=== PATIENT | female | born 1985 | race Caucasian/White ===

== ENCOUNTER 2018-07-18 19:54 | Emergency (ER) | payer OTHER ==
[~2018-07-18] VITALS: Ht 162.6 cm; Wt 108.9 kg
[2018-07-18 20:27] LABS: Urine Bacteria NONE SEEN /hpf (None Seen); Urine Blood Negative /uL (Negative); Urine Budding Yeast MODERATE /hpf (None Seen); Urine Specific Gravity 1.042 (1.001-1.035); Urine WBC 10 /hpf (0 - 5)
[2018-07-18 23:07] LABS: Basophils # (auto) 0.1 uL; Basophils % (auto) 0.8 % (0.0-2.0); Eosinophils # (auto) 0.1 uL; Hematocrit 42.8 % (36.0-46.0); Hemoglobin 14.7 g/dL (12.2-16.2); Lymphocytes # (auto) 4.1 uL; Lymphocytes % (auto) 35.6 % (10.0-50.0); Mean Corpuscular Hemoglobin 29.7 pg (28.0-32.0); Mean Corpuscular Hgb Conc. 34.3 g/dL (32.0-36.0); Mean Corpuscular Volume 86.4 fL (80.0-100.0); Monocytes # (auto) 0.6 uL; Monocytes % (auto) 5.1 % (0.0-12.0); Neutrophils # (auto) 6.6 uL; Neutrophils % (auto) 57.5 % (37.0-80.0); Nucleated Red Blood Cells % 0.1 %; Platelet Count (auto) 232 10^3/uL (140-450); Red Blood Cells 4.95 10^6/uL (4.0-5.20); Red Cell Distribution Width 13.1 % (11.8-14.3); White Blood Cell 11.5 10^3/uL (4.4-10.8)
[2018-07-18 23:25] LABS: Alanine Aminotransferase 21 U/L (13-56); Albumin 3.6 g/dL (3.4-5.0); Anion Gap 11 (5-15); Aspartate Aminotransferase 8 U/L (15-37); BUN/Creatinine Ratio 16.3; Blood Urea Nitrogen 13 mg/dL (7-18); Carbon Dioxide 25 mmol/L (21-32); Chloride 98 mmol/L (98-107); GFR African American 108 mL/min; GFR Non-African American 89 mL/min; Glucose 280 mg/dL (74-106); Magnesium 2.2 mg/dL (1.6-2.6); Potassium 3.5 mmol/L (3.5-5.1); Sodium 134 mmol/L (136-145)
[2018-07-18 23:30] LABS: Alkaline Phosphatase 78 U/L (45-117); Bilirubin, Total 0.2 mg/dL (0.2-1.0); Total Protein 7.4 g/dL (6.4-8.2)
[2018-07-19 06:24] VITALS: BP 126/76
== END 2018-07-19 06:25 | disposition home or self-care (01) ==
LOC: ER 19:56
DX: J20.9 Acute bronchitis, unspecified (principal); J32.0 Chronic maxillary sinusitis; N39.0 Urinary tract infection, site not specified; I11.0 Hypertensive heart disease with heart failure; I50.9 Heart failure, unspecified; E11.9 Type 2 diabetes mellitus without complications; J45.909 Unspecified asthma, uncomplicated; Z88.8 Allergy status to other drugs, medicaments and biological substances; Z90.89 Acquired absence of other organs
CPT/HCPCS: 36415; 71046; 80053; 81001; 81025; 83735; 84484; 85025; 87804; 93005

== ENCOUNTER 2020-09-04 22:24 | Inpatient (IN) | payer OTHER ==
[~2020-09-04] VITALS: Ht 162.6 cm; Wt 130.8 kg
[2020-09-04 23:11] LABS: Basophils # (auto) 0.1 10 ^3/uL (0-0.2); Basophils % (auto) 0.7 % (0.0-2.0); Eosinophils # (auto) 0.1 10 ^3/uL (0-0.8); Eosinophils % (auto) 0.9 % (0.0-7.0); Hematocrit 35.7 % (36.0-46.0); Hemoglobin 12.4 g/dL (12.2-16.2); Lymphocytes # (auto) 1.8 10 ^3/uL (0.4-5.4); Lymphocytes % (auto) 20.4 % (10.0-50.0); Mean Corpuscular Hgb Conc. 34.8 g/dL (32.0-36.0); Mean Corpuscular Volume 86.1 fL (80.0-100.0); Monocytes # (auto) 0.7 10 ^3/uL (0-1.3); Monocytes % (auto) 7.6 % (0.0-12.0); Neutrophils # (auto) 6.1 10 ^3/uL (1.6-8.6); Neutrophils % (auto) 70.4 % (37.0-80.0); Nucleated Red Blood Cells % 0.1 %; Platelet Count (auto) 210 10^3/uL (140-450); Red Blood Cells 4.15 10^6/uL (4.0-5.20); Red Cell Distribution Width 13.7 % (11.8-14.3); White Blood Cell 8.7 10^3/uL (4.4-10.8)
[2020-09-04 23:31] LABS: Albumin 2.7 g/dL (3.4-5.0); BUN/Creatinine Ratio 16.9; Calcium 8.4 mg/dL (8.5-10.1); Potassium 4.4 mmol/L (3.5-5.1)
[2020-09-04 23:34] LABS: Bilirubin, Total 0.3 mg/dL (0.2-1.0); Total Protein 7.3 g/dL (6.4-8.2)
[2020-09-05 02:56] LABS: Urine Bacteria FEW /hpf (None Seen); Urine Blood Negative /uL (Negative); Urine Budding Yeast MANY /hpf (None Seen); Urine WBC 4 /hpf (0 - 5)
[2020-09-05] MEDS ORDERED: VANCOMYCIN 1GM/250ML 250 ML IV ONE (04:15)
[2020-09-05] MEDS ORDERED: CEFEPIME 2 GM in SODIUM CHL 0.9% 50 ML IV ONE (04:15)
[2020-09-05] MEDS ORDERED: VANCOMYCIN PER PHARMACY 0 MG IV SCH (05:30)
[2020-09-05] MEDS ORDERED: ONDANSETRON HCL 4 MG/2 ML VIAL IV PRN (07:00)
[2020-09-05] MEDS ORDERED: NITROGLYCERIN 0.4 MG SL TAB SL PRN (07:00)
[2020-09-05] MEDS ORDERED: DEXTROSE (50%) 50ML SYRG IV PRN (07:00)
[2020-09-05] MEDS ORDERED: MORPHINE SULF INJ 2 MG/ML SYRINGE 1ML IV PRN (07:00)
[2020-09-05] MEDS ORDERED: DOCUSATE SOD 100 MG CAP PO PRN (07:00)
[2020-09-05] MEDS ORDERED: TEMAZEPAM 15 MG CAP PO PRN (07:00)
[2020-09-05] MEDS ORDERED: ACETAMINOPHEN 325 MG TAB PO PRN (07:00)
[2020-09-05 07:12] LABS: Basophils # (auto) 0 10 ^3/uL (0-0.2); Basophils % (auto) 0.5 % (0.0-2.0); Eosinophils # (auto) 0.1 10 ^3/uL (0-0.8); Eosinophils % (auto) 1.1 % (0.0-7.0); Hematocrit 34.5 % (36.0-46.0); Hemoglobin 12.2 g/dL (12.2-16.2); Lymphocytes % (auto) 24.5 % (10.0-50.0); Mean Corpuscular Hemoglobin 30.1 pg (28.0-32.0); Mean Corpuscular Hgb Conc. 35.4 g/dL (32.0-36.0); Mean Corpuscular Volume 85.1 fL (80.0-100.0); Monocytes # (auto) 0.8 10 ^3/uL (0-1.3); Monocytes % (auto) 9.6 % (0.0-12.0); Neutrophils # (auto) 5.3 10 ^3/uL (1.6-8.6); Neutrophils % (auto) 64.3 % (37.0-80.0); Platelet Count (auto) 195 10^3/uL (140-450); Potassium 3.8 mmol/L (3.5-5.1); Red Blood Cells 4.05 10^6/uL (4.0-5.20); Red Cell Distribution Width 13.6 % (11.8-14.3); White Blood Cell 8.2 10^3/uL (4.4-10.8)
[2020-09-05] MEDS ORDERED: SACU1TAB PO (07:27)
[2020-09-05] MEDS ORDERED: LOSA-69 PO (07:27)
[2020-09-05] MEDS ORDERED: MONT10TA42 PO (07:27)
[2020-09-05] MEDS ORDERED: HYDR-4072 PO (07:27)
[2020-09-05] MEDS ORDERED: GABA-339 PO (07:27)
[2020-09-05] MEDS ORDERED: INSUINJ37 SC (07:27)
[2020-09-05] MEDS ORDERED: METO1TAB9 PO (07:27)
[2020-09-05] MEDS ORDERED: IBUP800T26 PO (07:27)
[2020-09-05] MEDS ORDERED: PANT40T PO (07:27)
[2020-09-05] MEDS ORDERED: LEV25T PO (07:27)
[2020-09-05 07:28] LABS: Albumin 2.8 g/dL (3.4-5.0); BUN/Creatinine Ratio 17.9; Bilirubin, Total 0.3 mg/dL (0.2-1.0); Calcium 8.3 mg/dL (8.5-10.1); Total Protein 7.2 g/dL (6.4-8.2)
[2020-09-05] MEDS: HYDROcodone-ACET 5/325MG TAB PO PRN (09:15)
[2020-09-05] MEDS: ENOXAPARIN SOD 80 MG/0.8ML SYRINGE SC SCH (10:00)
[2020-09-05] MEDS ORDERED: ENOXAPARIN SOD 80 MG/0.8ML SYRINGE SC ONE (10:00)
[2020-09-05] MEDS: FAMOTIDINE 20 MG TAB PO SCH ×2 (10:00→21:53)
[2020-09-05] MEDS: ZINC SULFATE 220mg CAP or TAB PO SCH (11:34)
[2020-09-05] MEDS: MULTIPLE VITAMIN TAB PO SCH (11:34)
[2020-09-05] MEDS: ASCORBIC ACID 500 MG TAB PO SCH ×2 (11:35→21:54)
[2020-09-05] MEDS: ACCU-CHEK COMFORT CURVE STRIP VI SCH ×3 (11:35→23:46)
[2020-09-05] MEDS: INSULIN LANTUS (GLARGINE) 1 /0.01ml (100units/ml) SC SCH ×2 (11:38→21:56)
[2020-09-05] MEDS: InsuLIN REG 1unit/0.01ml Soln (100units/ml) SC SCH ×3 (12:02→23:47)
[2020-09-05 13:00] VITALS: BP 117/71
[2020-09-05] MEDS: CEFEPIME 1 GM in SODIUM CHL 0.9% 50 ML IV SCH ×2 (15:33→21:54)
[2020-09-05] MEDS: SODIUM CHLOR 0.9% PF (SALINE LOCK) 10ML VIAL/SYR IV SCH ×2 (15:35→21:54)
[2020-09-05] MEDS: MORPHINE SULF INJ 2 MG/ML SYRINGE 1ML IV PRN ×2 (15:43→20:28)
[2020-09-05 17:45] VITALS: BP 144/90
[2020-09-05] MEDS: VANCOMYCIN 1GM/250ML 250 ML IV SCH (18:27)
[2020-09-05 22:17] VITALS: BP 120/78
[2020-09-05] MEDS ORDERED: LORA0.5T20 PO (23:19)
[2020-09-06] MEDS: MORPHINE SULF INJ 2 MG/ML SYRINGE 1ML IV PRN ×5 (00:19→22:21)
[2020-09-06] MEDS ORDERED: GABA-339 PO (01:58)
[2020-09-06] MEDS ORDERED: CHOL20009 PO (02:04)
[2020-09-06] MEDS ORDERED: ROSU40TA PO (02:07)
[2020-09-06] MEDS: VANCOMYCIN 1GM/250ML 250 ML IV SCH (02:23)
[2020-09-06] MEDS: CEFEPIME 1 GM in SODIUM CHL 0.9% 50 ML IV SCH ×3 (05:06→22:24)
[2020-09-06] MEDS: SODIUM CHLOR 0.9% PF (SALINE LOCK) 10ML VIAL/SYR IV SCH ×3 (05:07→22:19)
[2020-09-06 05:10] VITALS: BP 104/82
[2020-09-06] MEDS: ACCU-CHEK COMFORT CURVE STRIP VI SCH ×4 (06:06→23:49)
[2020-09-06] MEDS: InsuLIN REG 1unit/0.01ml Soln (100units/ml) SC SCH ×4 (06:11→23:29)
[2020-09-06] MEDS: INSULIN LANTUS (GLARGINE) 1 /0.01ml (100units/ml) SC SCH ×2 (06:12→22:24)
[2020-09-06 09:00] VITALS: BP 121/78
[2020-09-06 10:15] LABS: Potassium 4.2 mmol/L (3.5-5.1)
[2020-09-06] MEDS: ASCORBIC ACID 500 MG TAB PO SCH ×2 (10:19→22:19)
[2020-09-06] MEDS: MULTIPLE VITAMIN TAB PO SCH (10:19)
[2020-09-06] MEDS: FAMOTIDINE 20 MG TAB PO SCH ×2 (10:19→22:19)
[2020-09-06] MEDS: ZINC SULFATE 220mg CAP or TAB PO SCH (10:20)
[2020-09-06] MEDS: ENOXAPARIN SOD 80 MG/0.8ML SYRINGE SC SCH (10:20)
[2020-09-06 10:23] LABS: BUN/Creatinine Ratio 14.8; Calcium 8.7 mg/dL (8.5-10.1); Magnesium 2.2 mg/dL (1.6-2.6)
[2020-09-06] MEDS ORDERED: OPTISON 3ml Vial for INJ IV ONE (10:59)
[2020-09-06] MEDS: LORazepam 0.5 MG TAB PO PRN ×3 (11:00→23:56)
[2020-09-06 13:00] VITALS: BP 123/74
[2020-09-06 13:41] LABS: Basophils # (auto) 0.1 10 ^3/uL (0-0.2); Basophils % (auto) 0.9 % (0.0-2.0); Eosinophils # (auto) 0.1 10 ^3/uL (0-0.8); Eosinophils % (auto) 0.9 % (0.0-7.0); Hematocrit 36.8 % (36.0-46.0); Hemoglobin 12.8 g/dL (12.2-16.2); Lymphocytes # (auto) 1.6 10 ^3/uL (0.4-5.4); Mean Corpuscular Hemoglobin 29.7 pg (28.0-32.0); Mean Corpuscular Hgb Conc. 34.7 g/dL (32.0-36.0); Mean Corpuscular Volume 85.6 fL (80.0-100.0); Monocytes # (auto) 0.6 10 ^3/uL (0-1.3); Monocytes % (auto) 6.4 % (0.0-12.0); Neutrophils # (auto) 6.4 10 ^3/uL (1.6-8.6); Neutrophils % (auto) 73.8 % (37.0-80.0); Nucleated Red Blood Cells % 0.2 %; Platelet Count (auto) 242 10^3/uL (140-450); Red Blood Cells 4.31 10^6/uL (4.0-5.20); Red Cell Distribution Width 13.5 % (11.8-14.3); White Blood Cell 8.7 10^3/uL (4.4-10.8)
[2020-09-06 14:01] LABS: Albumin 2.5 g/dL (3.4-5.0); Calcium 9.2 mg/dL (8.5-10.1); Potassium 4.4 mmol/L (3.5-5.1)
[2020-09-06 14:03] LABS: BUN/Creatinine Ratio 14.3
[2020-09-06 14:06] LABS: Bilirubin, Total 0.2 mg/dL (0.2-1.0); Total Protein 7.6 g/dL (6.4-8.2)
[2020-09-06 17:00] VITALS: BP 110/48
[2020-09-06 22:25] VITALS: BP 134/78
[2020-09-07] MEDS: HYDROcodone-ACET 5/325MG TAB PO PRN ×3 (00:40→20:30)
[2020-09-07] MEDS: MORPHINE SULF INJ 2 MG/ML SYRINGE 1ML IV PRN ×2 (03:35→09:30)
[2020-09-07 05:16] VITALS: BP 106/67
[2020-09-07] MEDS: CEFEPIME 1 GM in SODIUM CHL 0.9% 50 ML IV SCH (06:27)
[2020-09-07] MEDS: SODIUM CHLOR 0.9% PF (SALINE LOCK) 10ML VIAL/SYR IV SCH ×3 (06:27→21:39)
[2020-09-07] MEDS: ACCU-CHEK COMFORT CURVE STRIP VI SCH ×4 (06:27→21:40)
[2020-09-07] MEDS: InsuLIN REG 1unit/0.01ml Soln (100units/ml) SC SCH ×4 (06:31→21:41)
[2020-09-07] MEDS: LEVOTHYROXINE SODIUM 50 MCG TAB PO SCH (06:31)
[2020-09-07] MEDS: INSULIN LANTUS (GLARGINE) 1 /0.01ml (100units/ml) SC SCH ×2 (06:31→21:40)
[2020-09-07 09:00] VITALS: BP 131/78
[2020-09-07] MEDS: MULTIPLE VITAMIN TAB PO SCH (09:30)
[2020-09-07] MEDS: ASCORBIC ACID 500 MG TAB PO SCH ×2 (09:30→21:39)
[2020-09-07] MEDS: FAMOTIDINE 20 MG TAB PO SCH ×2 (09:30→21:39)
[2020-09-07] MEDS: ZINC SULFATE 220mg CAP or TAB PO SCH (09:30)
[2020-09-07] MEDS: LORazepam 0.5 MG TAB PO PRN (09:30)
[2020-09-07] MEDS: ENOXAPARIN SOD 80 MG/0.8ML SYRINGE SC SCH (09:30)
[2020-09-07] MEDS ORDERED: LINEZOLID 600MG/300ML 300 ML IV SCH (12:15)
[2020-09-07 12:30] VITALS: BP 116/69
[2020-09-07] MEDS: LINEZOLID 600MG/300ML 300 ML IV SCH ×2 (13:30→21:39)
[2020-09-07 16:30] VITALS: BP 129/78
[2020-09-07 22:25] VITALS: BP 103/64
[2020-09-08] MEDS: MORPHINE SULF INJ 2 MG/ML SYRINGE 1ML IV PRN ×4 (00:40→16:07)
[2020-09-08] MEDS: LEVOTHYROXINE SODIUM 50 MCG TAB PO SCH (04:55)
[2020-09-08 05:10] VITALS: BP 138/84
[2020-09-08] MEDS: SODIUM CHLOR 0.9% PF (SALINE LOCK) 10ML VIAL/SYR IV SCH ×2 (05:32→14:04)
[2020-09-08] MEDS: ACCU-CHEK COMFORT CURVE STRIP VI SCH ×3 (05:32→17:50)
[2020-09-08] MEDS: INSULIN LANTUS (GLARGINE) 1 /0.01ml (100units/ml) SC SCH (05:35)
[2020-09-08] MEDS: InsuLIN REG 1unit/0.01ml Soln (100units/ml) SC SCH ×3 (05:38→17:50)
[2020-09-08 06:40] LABS: INR 1.03 (0.9-1.15); Partial Thromboplastin Time 28.1 sec (23.0-31.2)
[2020-09-08] MEDS ORDERED: ROPIVACAINE 0.5% (5MG/ML) 20ML AMPULE IJ ONE ×2 (06:55→07:29)
[2020-09-08] MEDS ORDERED: NEOMYCIN-BACITRACIN-POLYM 15GM TOP OINT TOP ONE (06:55)
[2020-09-08] MEDS ORDERED: ceFAZolin 1GM VL ONE (06:55)
[2020-09-08] MEDS ORDERED: ceFAZolin 1GM/50ML 100 ML IV ONE (07:01)
[2020-09-08] MEDS ORDERED: fentaNYL CITRATE 100 MCG/2 ML VL ONE (07:26)
[2020-09-08] MEDS ORDERED: MEPERIDINE HCL (25 MG/ML) 1ML VIAL ONE (07:26)
[2020-09-08] MEDS ORDERED: MIDAZOLAM HCL 1MG/1ML-2 ML VIAL ONE (07:27)
[2020-09-08] MEDS ORDERED: PROPOFOL 10 MG/ML 20 ML IV ONE (07:43)
[2020-09-08] MEDS ORDERED: MORPHINE SULFATE 4 MG/ML SYR/VIAL IV PRN (08:30)
[2020-09-08] MEDS ORDERED: MIDAZOLAM HCL 1MG/1ML-2 ML VIAL IV PRN (08:30)
[2020-09-08] MEDS ORDERED: ONDANSETRON HCL 4 MG/2 ML VIAL IV PRN (08:30)
[2020-09-08] MEDS ORDERED: LABETALOL HCL 5 MG/ML 4ML SYRINGE IV PRN (08:30)
[2020-09-08] MEDS ORDERED: ePHEDrine SULFATE 50 MG/ML AMP IV PRN (08:30)
[2020-09-08] MEDS ORDERED: HYDROmorphone HCL 2 MG/ML VL IV PRN (08:30)
[2020-09-08] MEDS: MULTIPLE VITAMIN TAB PO SCH (09:26)
[2020-09-08] MEDS: ZINC SULFATE 220mg CAP or TAB PO SCH (09:26)
[2020-09-08] MEDS: LINEZOLID 600MG/300ML 300 ML IV SCH (09:26)
[2020-09-08] MEDS: ASCORBIC ACID 500 MG TAB PO SCH (09:27)
[2020-09-08] MEDS: ENOXAPARIN SOD 80 MG/0.8ML SYRINGE SC SCH (09:27)
[2020-09-08] MEDS: FAMOTIDINE 20 MG TAB PO SCH (09:27)
[2020-09-08 13:00] VITALS: BP 137/94
[2020-09-08] MEDS: HYDROcodone-ACET 5/325MG TAB PO PRN ×2 (13:15→20:25)
[2020-09-08 17:00] VITALS: BP 128/93
[2020-09-08 20:00] VITALS: BP 116/81
[2020-09-08 22:00] VITALS: BP 116/81
[2020-09-09] MEDS: SODIUM CHLOR 0.9% PF (SALINE LOCK) 10ML VIAL/SYR IV SCH ×3 (00:51→16:17)
[2020-09-09] MEDS: LINEZOLID 600MG/300ML 300 ML IV SCH ×2 (00:52→09:49)
[2020-09-09] MEDS: SACUBITRIL-VALSARTAN 24mg/26mg TAB PO SCH ×2 (00:52→09:49)
[2020-09-09] MEDS: METOPROLOL TARTRATE 25 MG TAB PO SCH ×2 (00:53→09:49)
[2020-09-09] MEDS: FAMOTIDINE 20 MG TAB PO SCH ×2 (00:54→09:50)
[2020-09-09] MEDS: ASCORBIC ACID 500 MG TAB PO SCH ×2 (00:55→09:50)
[2020-09-09] MEDS: INSULIN LANTUS (GLARGINE) 1 /0.01ml (100units/ml) SC SCH ×2 (00:56→06:43)
[2020-09-09] MEDS: ACCU-CHEK COMFORT CURVE STRIP VI SCH ×4 (00:57→18:13)
[2020-09-09] MEDS: InsuLIN REG 1unit/0.01ml Soln (100units/ml) SC SCH ×4 (00:57→18:14)
[2020-09-09 05:00] VITALS: BP 118/74
[2020-09-09 06:34] LABS: Basophils # (auto) 0 10 ^3/uL (0-0.2); Basophils % (auto) 0.6 % (0.0-2.0); Eosinophils # (auto) 0.2 10 ^3/uL (0-0.8); Hematocrit 40.2 % (36.0-46.0); Hemoglobin 13.8 g/dL (12.2-16.2); Lymphocytes # (auto) 2.3 10 ^3/uL (0.4-5.4); Lymphocytes % (auto) 28.5 % (10.0-50.0); Mean Corpuscular Hemoglobin 29.7 pg (28.0-32.0); Mean Corpuscular Hgb Conc. 34.4 g/dL (32.0-36.0); Mean Corpuscular Volume 86.2 fL (80.0-100.0); Monocytes # (auto) 0.6 10 ^3/uL (0-1.3); Monocytes % (auto) 7.4 % (0.0-12.0); Neutrophils % (auto) 61.5 % (37.0-80.0); Nucleated Red Blood Cells % 0.1 %; Platelet Count (auto) 272 10^3/uL (140-450); Red Blood Cells 4.67 10^6/uL (4.0-5.20); Red Cell Distribution Width 13.7 % (11.8-14.3); White Blood Cell 8.2 10^3/uL (4.4-10.8)
[2020-09-09] MEDS: LEVOTHYROXINE SODIUM 50 MCG TAB PO SCH (06:41)
[2020-09-09 06:44] LABS: Calcium 9.1 mg/dL (8.5-10.1); Magnesium 2.5 mg/dL (1.6-2.6)
[2020-09-09 06:47] LABS: BUN/Creatinine Ratio 13.8
[2020-09-09 09:00] VITALS: BP 104/81
[2020-09-09] MEDS: ZINC SULFATE 220mg CAP or TAB PO SCH (09:49)
[2020-09-09] MEDS: MULTIPLE VITAMIN TAB PO SCH (09:50)
[2020-09-09] MEDS: ENOXAPARIN SOD 80 MG/0.8ML SYRINGE SC SCH (09:50)
[2020-09-09] MEDS: MORPHINE SULF INJ 2 MG/ML SYRINGE 1ML IV PRN (09:51)
[2020-09-09 13:19] VITALS: BP 114/75
[2020-09-09] MEDS: HYDROcodone-ACET 5/325MG TAB PO PRN (16:17)
[2020-09-09 17:00] VITALS: BP 116/83
[2020-09-09 20:00] VITALS: BP_SYST 112; BP_SYST 115; BP_DIAS 70
== END 2020-09-09 20:20 | disposition home health service (06) | DRG 623 ==
LOC: ER 22:24 → OVERFLOW 09-05 06:49 → CENTRAL 09-05 08:20
PROVIDERS: ADMIT Nurse Practitioner Family; ATTEND Internal Medicine
PROC: 0JBQ0ZZ Excision of Right Foot Subcutaneous Tissue and Fascia, Open Approach (ICD-10-PCS; 2020-09-08)
PROC: 0H9NXZZ Drainage of Left Foot Skin, External Approach (ICD-10-PCS; 2020-09-08)
PROC: 0JBR0ZZ Excision of Left Foot Subcutaneous Tissue and Fascia, Open Approach (ICD-10-PCS; principal; 2020-09-08 07:32)
DX: E11.621 Type 2 diabetes mellitus with foot ulcer (principal); L03.116 Cellulitis of left lower limb; L02.612 Cutaneous abscess of left foot; I50.42 Chronic combined systolic (congestive) and diastolic (congestive) heart failure; E87.1 Hypo-osmolality and hyponatremia; Z68.41 Body mass index [BMI] 40.0-44.9, adult; E11.628 Type 2 diabetes mellitus with other skin complications; L97.529 Non-pressure chronic ulcer of other part of left foot with unspecified severity; L97.519 Non-pressure chronic ulcer of other part of right foot with unspecified severity; E88.09 Other disorders of plasma-protein metabolism, not elsewhere classified; E66.01 Morbid (severe) obesity due to excess calories; E11.65 Type 2 diabetes mellitus with hyperglycemia; J45.909 Unspecified asthma, uncomplicated; F41.9 Anxiety disorder, unspecified; F32.9 Major depressive disorder, single episode, unspecified; M79.7 Fibromyalgia; E03.9 Hypothyroidism, unspecified; I11.0 Hypertensive heart disease with heart failure; Z83.3 Family history of diabetes mellitus; B95.62 Methicillin resistant Staphylococcus aureus infection as the cause of diseases classified elsewhere; Z20.822 Contact with and (suspected) exposure to COVID-19
CPT/HCPCS: 36415; 73630; 73700; 73718; 80048; 80053; 80061; 81001; 82306; 82962; 83036; 83605; 83735; 83880; 84443; 84702; 85025; 85049; 85610; 85652; 85730; 86850; 86900; 86901; 87070; 87075; 87077; 87186; 87205; 87426; 93306; 93925; 96365; G0378; J0690; J1815; J2250; J2405; J2704; Q9956

== ENCOUNTER 2020-09-15 22:48 | Inpatient (IN) | payer OTHER ==
[~2020-09-15] VITALS: Ht 162.6 cm; Wt 113.0 kg
[~2020-09-15 22:48] MED LIST: CHOL20009 PO; GABA-339 PO; HYDR-4072 PO; IBUP800T26 PO; INSUINJ37 SC; LEV25T PO; LORA0.5T20 PO; METO1TAB9 PO; MONT10TA42 PO; PANT40T PO; ROSU40TA PO; SACU1TAB PO
[2020-09-16 01:47] LABS: Basophils # (auto) 0.1 10 ^3/uL (0-0.2); Eosinophils # (auto) 0.2 10 ^3/uL (0-0.8); Eosinophils % (auto) 1.7 % (0.0-7.0); Hematocrit 42.9 % (36.0-46.0); Hemoglobin 14.6 g/dL (12.2-16.2); Lymphocytes # (auto) 4.7 10 ^3/uL (0.4-5.4); Lymphocytes % (auto) 44.1 % (10.0-50.0); Mean Corpuscular Hemoglobin 28.8 pg (28.0-32.0); Mean Corpuscular Volume 84.6 fL (80.0-100.0); Monocytes # (auto) 0.6 10 ^3/uL (0-1.3); Monocytes % (auto) 5.3 % (0.0-12.0); Neutrophils # (auto) 5.1 10 ^3/uL (1.6-8.6); Neutrophils % (auto) 47.9 % (37.0-80.0); Nucleated Red Blood Cells % 0.1 %; Red Blood Cells 5.06 10^6/uL (4.0-5.20); Red Cell Distribution Width 13.4 % (11.8-14.3); White Blood Cell 10.5 10^3/uL (4.4-10.8)
[2020-09-16 02:12] LABS: Albumin 3.3 g/dL (3.4-5.0); BUN/Creatinine Ratio 26.4; Calcium 8.8 mg/dL (8.5-10.1); Potassium 3.9 mmol/L (3.5-5.1)
[2020-09-16 02:14] LABS: Bilirubin, Total 0.2 mg/dL (0.2-1.0); Total Protein 7.8 g/dL (6.4-8.2)
[2020-09-16 02:19] LABS: Urine Bacteria FEW /hpf (None Seen); Urine Blood Negative /uL (Negative); Urine Budding Yeast MANY /hpf (None Seen); Urine Specific Gravity 1.043 (1.001-1.035); Urine WBC 4 /hpf (0 - 5)
[2020-09-16 02:20] LABS: INR 1.03 (0.9-1.15); Partial Thromboplastin Time 25.2 sec (23.0-31.2)
[2020-09-16] MEDS ORDERED: LINEZOLID 600MG/300ML 300 ML IV ONE (03:45)
[2020-09-16] MEDS ORDERED: ACETAMINOPHEN 325 MG TAB PO PRN (05:45)
[2020-09-16] MEDS ORDERED: DEXTROSE (50%) 50ML SYRG IV PRN ×2 (05:45→12:15)
[2020-09-16] MEDS: MORPHINE SULFATE 4 MG/ML SYR/VIAL IV PRN ×3 (07:04→22:35)
[2020-09-16] MEDS: ONDANSETRON HCL 4 MG/2 ML VIAL IV PRN ×2 (07:05→22:35)
[2020-09-16] MEDS: ACCU-CHEK COMFORT CURVE STRIP VI SCH ×4 (07:33→22:27)
[2020-09-16] MEDS: InsuLIN REG 1unit/0.01ml Soln (100units/ml) SC SCH ×4 (07:34→22:30)
[2020-09-16] MEDS: CLINDAMYCIN 600MG IV 50 ML IV SCH ×3 (07:59→22:26)
[2020-09-16] MEDS: LEVOTHYROXINE SODIUM 25 MCG TAB PO SCH (07:59)
[2020-09-16 09:00] VITALS: BP 121/89
[2020-09-16] MEDS: cefTRIAXone 1GM/50ML D5W 50 ML IV SCH (09:14)
[2020-09-16] MEDS: SACUBITRIL-VALSARTAN 24mg/26mg TAB PO SCH ×2 (09:15→22:26)
[2020-09-16] MEDS: METOPROLOL TARTRATE 50 MG TAB PO SCH ×2 (09:16→22:34)
[2020-09-16] MEDS: FAMOTIDINE 20 MG TAB PO SCH ×2 (09:16→22:26)
[2020-09-16] MEDS ORDERED: ASPITAB34 PO (11:03)
[2020-09-16] MEDS ORDERED: MULT-1018 PO (11:03)
[2020-09-16 13:00] VITALS: BP 115/60
[2020-09-16] MEDS: HYDROcodone-ACET 5/325MG TAB PO PRN (16:58)
[2020-09-16 17:00] VITALS: BP 133/92
[2020-09-16 22:00] VITALS: BP 134/78
[2020-09-16] MEDS: ATORVASTATIN 20 MG TAB PO SCH (22:26)
[2020-09-17 05:00] VITALS: BP 153/76
[2020-09-17 05:55] LABS: Basophils # (auto) 0.1 10 ^3/uL (0-0.2); Basophils % (auto) 0.7 % (0.0-2.0); Eosinophils # (auto) 0.1 10 ^3/uL (0-0.8); Eosinophils % (auto) 1.5 % (0.0-7.0); Hematocrit 40.6 % (36.0-46.0); Hemoglobin 14.2 g/dL (12.2-16.2); Lymphocytes # (auto) 3.1 10 ^3/uL (0.4-5.4); Lymphocytes % (auto) 40.7 % (10.0-50.0); Mean Corpuscular Hemoglobin 29.7 pg (28.0-32.0); Mean Corpuscular Hgb Conc. 34.9 g/dL (32.0-36.0); Monocytes # (auto) 0.5 10 ^3/uL (0-1.3); Monocytes % (auto) 6.7 % (0.0-12.0); Neutrophils # (auto) 3.8 10 ^3/uL (1.6-8.6); Neutrophils % (auto) 50.4 % (37.0-80.0); Nucleated Red Blood Cells % 0.1 %; Red Blood Cells 4.78 10^6/uL (4.0-5.20); Red Cell Distribution Width 13.6 % (11.8-14.3); White Blood Cell 7.5 10^3/uL (4.4-10.8)
[2020-09-17] MEDS: CLINDAMYCIN 600MG IV 50 ML IV SCH ×3 (06:05→21:27)
[2020-09-17] MEDS: LEVOTHYROXINE SODIUM 25 MCG TAB PO SCH ×2 (06:06→06:14)
[2020-09-17] MEDS: ONDANSETRON HCL 4 MG/2 ML VIAL IV PRN ×2 (06:07→22:45)
[2020-09-17] MEDS: MORPHINE SULFATE 4 MG/ML SYR/VIAL IV PRN ×2 (06:07→21:31)
[2020-09-17] MEDS: ACCU-CHEK COMFORT CURVE STRIP VI SCH ×4 (06:07→21:29)
[2020-09-17] MEDS: InsuLIN REG 1unit/0.01ml Soln (100units/ml) SC SCH ×6 (06:08→21:30)
[2020-09-17 06:36] LABS: Calcium 8.6 mg/dL (8.5-10.1); Potassium 3.9 mmol/L (3.5-5.1)
[2020-09-17] MEDS ORDERED: LIDOCAINE 1% HCL (LOCAL ANESTH.) INJ 20ML MDV ONE (07:02)
[2020-09-17] MEDS ORDERED: DOXAPRAM HCL 20 MG/ML 20ML VIAL INJ IV ONE (07:02)
[2020-09-17] MEDS ORDERED: fentaNYL CITRATE 100 MCG/2 ML VL ONE (07:06)
[2020-09-17] MEDS ORDERED: MIDAZOLAM HCL 1MG/1ML-2 ML VIAL ONE (07:07)
[2020-09-17] MEDS ORDERED: KETAMINE HCL 10 ML ONE (07:07)
[2020-09-17] MEDS ORDERED: PROPOFOL 10 MG/ML 20 ML IV ONE (07:08)
[2020-09-17] MEDS ORDERED: ONDANSETRON HCL 4 MG/2 ML VIAL ONE (07:08)
[2020-09-17] MEDS ORDERED: SODIUM CHLORIDE LOCK 10 ML ONE (07:08)
[2020-09-17] MEDS ORDERED: ceFAZolin 1GM VL ONE (07:13)
[2020-09-17] MEDS ORDERED: NEOMYCIN-BACITRACIN-POLYM 15GM TOP OINT TOP ONE (07:13)
[2020-09-17] MEDS ORDERED: ROPIVACAINE 0.5% (5MG/ML) 20ML AMPULE IJ ONE (07:13)
[2020-09-17] MEDS ORDERED: ACCU-CHEK COMFORT CURVE STRIP VI ONE (07:30)
[2020-09-17] MEDS ORDERED: MORPHINE SULFATE 4 MG/ML SYR/VIAL IV PRN (07:30)
[2020-09-17] MEDS ORDERED: METOCLOPRAMIDE HCL 5MG/ml INJ 2ml VIAL IV PRN (07:30)
[2020-09-17] MEDS ORDERED: HYDROmorphone HCL 2 MG/ML VL IV PRN (07:30)
[2020-09-17] MEDS ORDERED: METOCLOPRAMIDE HCL 5MG/ml INJ 2ml VIAL IV ONE (07:45)
[2020-09-17 09:00] VITALS: BP 127/50
[2020-09-17] MEDS: cefTRIAXone 1GM/50ML D5W 50 ML IV SCH (09:00)
[2020-09-17] MEDS: SACUBITRIL-VALSARTAN 24mg/26mg TAB PO SCH ×2 (10:32→21:28)
[2020-09-17] MEDS: FAMOTIDINE 20 MG TAB PO SCH (10:33)
[2020-09-17] MEDS: METOPROLOL TARTRATE 50 MG TAB PO SCH ×2 (10:33→21:28)
[2020-09-17] MEDS: HYDROcodone-ACET 5/325MG TAB PO PRN (11:40)
[2020-09-17 13:00] VITALS: BP 105/69
[2020-09-17] MEDS ORDERED: LIDOCAINE 1% (LOCAL ANESTH.) PF 5ml SDV ID ONE (14:15)
[2020-09-17 17:00] VITALS: BP 97/62
[2020-09-17] MEDS: SODIUM CHLOR 0.9% PF (SALINE LOCK) 10ML VIAL/SYR IV SCH (21:28)
[2020-09-17] MEDS: ATORVASTATIN 20 MG TAB PO SCH (21:28)
[2020-09-17 22:00] VITALS: BP 133/81
[2020-09-17] MEDS ORDERED: TEMAZEPAM 15 MG CAP PO PRN (23:00)
[2020-09-18] MEDS: ONDANSETRON HCL 4 MG/2 ML VIAL IV PRN ×4 (04:43→20:19)
[2020-09-18] MEDS: MORPHINE SULFATE 4 MG/ML SYR/VIAL IV PRN ×4 (04:43→20:20)
[2020-09-18 05:00] VITALS: BP 114/66
[2020-09-18] MEDS: CLINDAMYCIN 600MG IV 50 ML IV SCH (06:06)
[2020-09-18] MEDS: ACCU-CHEK COMFORT CURVE STRIP VI SCH ×4 (06:07→22:08)
[2020-09-18] MEDS: InsuLIN REG 1unit/0.01ml Soln (100units/ml) SC SCH ×4 (06:07→22:09)
[2020-09-18] MEDS: LEVOTHYROXINE SODIUM 25 MCG TAB PO SCH (06:48)
[2020-09-18 09:00] VITALS: BP 137/86
[2020-09-18] MEDS: cefTRIAXone 1GM/50ML D5W 50 ML IV SCH (09:14)
[2020-09-18] MEDS: SODIUM CHLOR 0.9% PF (SALINE LOCK) 10ML VIAL/SYR IV SCH ×2 (09:14→22:06)
[2020-09-18] MEDS: SACUBITRIL-VALSARTAN 24mg/26mg TAB PO SCH ×2 (09:15→22:06)
[2020-09-18] MEDS: METOPROLOL TARTRATE 50 MG TAB PO SCH ×2 (09:15→22:07)
[2020-09-18 13:00] VITALS: BP 134/77
[2020-09-18 17:00] VITALS: BP 115/76
[2020-09-18 22:00] VITALS: BP 116/77
[2020-09-18] MEDS ORDERED: LINEZOLID 600MG/300ML 300 ML IV SCH (22:00)
[2020-09-18] MEDS: ATORVASTATIN 20 MG TAB PO SCH (22:06)
[2020-09-18] MEDS: GABAPENTIN 300 MG CAP PO SCH (22:08)
[2020-09-18] MEDS: LINEZOLID 600MG TABLET PO SCH (22:08)
[2020-09-18] MEDS: INSULIN LANTUS (GLARGINE) 1 /0.01ml (100units/ml) SC SCH (22:10)
[2020-09-19] MEDS: LORazepam 0.5 MG TAB PO PRN ×2 (00:04→23:12)
[2020-09-19] MEDS: ONDANSETRON HCL 4 MG/2 ML VIAL IV PRN ×5 (00:10→22:44)
[2020-09-19] MEDS: MORPHINE SULFATE 4 MG/ML SYR/VIAL IV PRN ×5 (00:10→22:43)
[2020-09-19 05:25] VITALS: BP 102/59
[2020-09-19] MEDS: LEVOTHYROXINE SODIUM 25 MCG TAB PO SCH (06:26)
[2020-09-19] MEDS: ACCU-CHEK COMFORT CURVE STRIP VI SCH ×4 (06:27→21:37)
[2020-09-19] MEDS: InsuLIN REG 1unit/0.01ml Soln (100units/ml) SC SCH ×4 (06:27→22:42)
[2020-09-19 09:00] VITALS: BP 116/68
[2020-09-19] MEDS: GABAPENTIN 300 MG CAP PO SCH ×2 (09:24→21:36)
[2020-09-19] MEDS: SACUBITRIL-VALSARTAN 24mg/26mg TAB PO SCH ×2 (09:24→21:36)
[2020-09-19] MEDS: METOPROLOL TARTRATE 50 MG TAB PO SCH ×2 (09:24→21:36)
[2020-09-19] MEDS: LINEZOLID 600MG TABLET PO SCH (10:08)
[2020-09-19] MEDS: SODIUM CHLOR 0.9% PF (SALINE LOCK) 10ML VIAL/SYR IV SCH ×2 (10:08→21:35)
[2020-09-19 13:00] VITALS: BP 108/73
[2020-09-19 17:00] VITALS: BP 121/84
[2020-09-19] MEDS: LINEZOLID 600MG/300ML 300 ML IV SCH (21:35)
[2020-09-19] MEDS: ATORVASTATIN 20 MG TAB PO SCH (21:37)
[2020-09-19 22:15] VITALS: BP 129/80
[2020-09-19] MEDS: INSULIN LANTUS (GLARGINE) 1 /0.01ml (100units/ml) SC SCH (22:41)
[2020-09-20 05:00] VITALS: BP 108/62
[2020-09-20] MEDS: ACCU-CHEK COMFORT CURVE STRIP VI SCH ×4 (06:51→21:43)
[2020-09-20] MEDS: InsuLIN REG 1unit/0.01ml Soln (100units/ml) SC SCH ×4 (06:52→21:44)
[2020-09-20] MEDS: LEVOTHYROXINE SODIUM 25 MCG TAB PO SCH (06:54)
[2020-09-20] MEDS: MORPHINE SULFATE 4 MG/ML SYR/VIAL IV PRN ×3 (08:22→21:55)
[2020-09-20 09:00] VITALS: BP 99/57
[2020-09-20] MEDS: SODIUM CHLOR 0.9% PF (SALINE LOCK) 10ML VIAL/SYR IV SCH ×2 (09:47→21:42)
[2020-09-20] MEDS: GABAPENTIN 300 MG CAP PO SCH ×2 (09:48→21:43)
[2020-09-20] MEDS: LINEZOLID 600MG/300ML 300 ML IV SCH ×2 (09:48→21:42)
[2020-09-20] MEDS: SACUBITRIL-VALSARTAN 24mg/26mg TAB PO SCH ×2 (09:48→21:42)
[2020-09-20] MEDS: METOPROLOL TARTRATE 50 MG TAB PO SCH ×2 (09:49→21:43)
[2020-09-20] MEDS: ONDANSETRON HCL 4 MG/2 ML VIAL IV PRN ×2 (09:51→21:54)
[2020-09-20 13:00] VITALS: BP 114/75
[2020-09-20 17:14] VITALS: BP 101/49
[2020-09-20] MEDS: ATORVASTATIN 20 MG TAB PO SCH (21:42)
[2020-09-20] MEDS: INSULIN LANTUS (GLARGINE) 1 /0.01ml (100units/ml) SC SCH (21:44)
[2020-09-20 22:00] VITALS: BP 121/61
[2020-09-20] MEDS: LORazepam 0.5 MG TAB PO PRN (23:18)
[2020-09-21 05:14] VITALS: BP 101/53
[2020-09-21] MEDS: ACCU-CHEK COMFORT CURVE STRIP VI SCH ×4 (06:22→21:01)
[2020-09-21] MEDS: LEVOTHYROXINE SODIUM 25 MCG TAB PO SCH (06:22)
[2020-09-21] MEDS: InsuLIN REG 1unit/0.01ml Soln (100units/ml) SC SCH ×4 (06:22→21:09)
[2020-09-21] MEDS: MORPHINE SULFATE 4 MG/ML SYR/VIAL IV PRN ×3 (06:36→20:42)
[2020-09-21] MEDS: ONDANSETRON HCL 4 MG/2 ML VIAL IV PRN ×2 (06:36→21:19)
[2020-09-21] MEDS: SODIUM CHLOR 0.9% PF (SALINE LOCK) 10ML VIAL/SYR IV SCH ×2 (09:17→21:00)
[2020-09-21 09:38] VITALS: BP 106/63
[2020-09-21] MEDS: LINEZOLID 600MG/300ML 300 ML IV SCH ×2 (10:10→21:00)
[2020-09-21] MEDS: SACUBITRIL-VALSARTAN 24mg/26mg TAB PO SCH ×2 (10:10→21:00)
[2020-09-21] MEDS: METOPROLOL TARTRATE 50 MG TAB PO SCH ×2 (10:11→21:01)
[2020-09-21] MEDS: GABAPENTIN 300 MG CAP PO SCH ×2 (10:12→21:01)
[2020-09-21 13:00] VITALS: BP 128/90
[2020-09-21] MEDS: ATORVASTATIN 20 MG TAB PO SCH (21:00)
[2020-09-21] MEDS: INSULIN LANTUS (GLARGINE) 1 /0.01ml (100units/ml) SC SCH (21:10)
[2020-09-21 22:00] VITALS: BP 120/83
[2020-09-21] MEDS: LORazepam 0.5 MG TAB PO PRN (23:19)
[2020-09-22] MEDS: MORPHINE SULFATE 4 MG/ML SYR/VIAL IV PRN ×3 (00:41→09:48)
[2020-09-22 05:00] VITALS: BP 103/72
[2020-09-22] MEDS: ONDANSETRON HCL 4 MG/2 ML VIAL IV PRN ×2 (05:54→10:01)
[2020-09-22] MEDS: ACCU-CHEK COMFORT CURVE STRIP VI SCH ×2 (06:02→12:32)
[2020-09-22] MEDS: LEVOTHYROXINE SODIUM 25 MCG TAB PO SCH (06:02)
[2020-09-22] MEDS: InsuLIN REG 1unit/0.01ml Soln (100units/ml) SC SCH ×2 (06:03→11:30)
[2020-09-22 09:00] VITALS: BP 139/96
[2020-09-22] MEDS: SACUBITRIL-VALSARTAN 24mg/26mg TAB PO SCH (09:48)
[2020-09-22] MEDS: GABAPENTIN 300 MG CAP PO SCH (09:49)
[2020-09-22] MEDS: METOPROLOL TARTRATE 50 MG TAB PO SCH (09:49)
[2020-09-22] MEDS: LINEZOLID 600MG/300ML 300 ML IV SCH (09:49)
[2020-09-22] MEDS: SODIUM CHLOR 0.9% PF (SALINE LOCK) 10ML VIAL/SYR IV SCH (09:50)
[2020-09-22 12:05] VITALS: BP 91/63
== END 2020-09-22 12:50 | disposition home health service (06) | DRG 617 ==
LOC: ER 22:48 → OVERFLOW 09-16 05:35 → WEST WING 09-16 08:34
PROVIDERS: ADMIT Nurse Practitioner; ATTEND Family Medicine
PROC: 0QTP0ZZ Resection of Left Metatarsal, Open Approach (ICD-10-PCS; 2020-09-17)
PROC: 02HV33Z Insertion of Infusion Device into Superior Vena Cava, Percutaneous Approach (ICD-10-PCS; 2020-09-17)
PROC: B548ZZA Ultrasonography of Superior Vena Cava, Guidance (ICD-10-PCS; 2020-09-17)
PROC: 0Y6Q0Z0 Detachment at Left 1st Toe, Complete, Open Approach (ICD-10-PCS; principal; 2020-09-17 07:55)
DX: E11.69 Type 2 diabetes mellitus with other specified complication (principal); L03.116 Cellulitis of left lower limb; R78.81 Bacteremia; E44.0 Moderate protein-calorie malnutrition; M86.8X8 Other osteomyelitis, other site; Z68.41 Body mass index [BMI] 40.0-44.9, adult; I50.22 Chronic systolic (congestive) heart failure; E11.621 Type 2 diabetes mellitus with foot ulcer; E03.9 Hypothyroidism, unspecified; B95.62 Methicillin resistant Staphylococcus aureus infection as the cause of diseases classified elsewhere; E11.21 Type 2 diabetes mellitus with diabetic nephropathy; E11.40 Type 2 diabetes mellitus with diabetic neuropathy, unspecified; E66.01 Morbid (severe) obesity due to excess calories; F41.9 Anxiety disorder, unspecified; G47.30 Sleep apnea, unspecified; E78.00 Pure hypercholesterolemia, unspecified; F31.9 Bipolar disorder, unspecified; I11.0 Hypertensive heart disease with heart failure; J45.909 Unspecified asthma, uncomplicated; L97.519 Non-pressure chronic ulcer of other part of right foot with unspecified severity; L97.529 Non-pressure chronic ulcer of other part of left foot with unspecified severity; Z83.3 Family history of diabetes mellitus; Z88.1 Allergy status to other antibiotic agents; Z89.412 Acquired absence of left great toe; Z79.899 Other long term (current) drug therapy; Z90.49 Acquired absence of other specified parts of digestive tract; Z91.013 Allergy to seafood; Z88.8 Allergy status to other drugs, medicaments and biological substances; Z20.822 Contact with and (suspected) exposure to COVID-19
CPT/HCPCS: 36415; 36569; 71045; 73700; 73718; 80048; 80053; 81001; 82962; 83605; 84702; 85025; 85610; 85730; 86850; 86900; 86901; 87040; 87070; 87075; 87077; 87081; 87186; 87205; 87426; 96365; 96366; 96367; 96372; G0378; J0690; J0696; J1815; J2001; J2250; J2405; J2704; J3490

== ENCOUNTER 2020-11-13 22:19 | Inpatient (IN) | payer OTHER ==
[~2020-11-13] VITALS: Ht 162.6 cm; Wt 113.8 kg
[~2020-11-13 22:19] MED LIST changes: +ASPITAB34 PO; +MULT-1018 PO
[2020-11-13 23:26] LABS: Basophils % (auto) 0.4 % (0.0-2.0); Eosinophils % (auto) 1.6 % (0.0-7.0); Lymphocytes % (auto) 29.4 % (10.0-50.0); Neutrophils % (auto) 61.6 % (37.0-80.0)
[2020-11-13 23:27] LABS: Basophils # (auto) 0 10 ^3/uL (0-0.2); Eosinophils # (auto) 0.1 10 ^3/uL (0-0.8); Hematocrit 41.1 % (36.0-46.0); Hemoglobin 13.7 g/dL (12.2-16.2); Lymphocytes # (auto) 2.1 10 ^3/uL (0.4-5.4); Mean Corpuscular Hgb Conc. 33.3 g/dL (32.0-36.0); Mean Corpuscular Volume 87.1 fL (80.0-100.0); Monocytes # (auto) 0.5 10 ^3/uL (0-1.3); Neutrophils # (auto) 4.3 10 ^3/uL (1.6-8.6); Nucleated Red Blood Cells % 0.1 %; Red Blood Cells 4.72 10^6/uL (4.0-5.20); Red Cell Distribution Width 15.5 % (11.8-14.3)
[2020-11-13 23:50] LABS: Albumin 3.1 g/dL (3.4-5.0); BUN/Creatinine Ratio 13.8; Calcium 8.7 mg/dL (8.5-10.1); Potassium 3.8 mmol/L (3.5-5.1)
[2020-11-13 23:52] LABS: Bilirubin, Total 0.3 mg/dL (0.2-1.0); Total Protein 7.1 g/dL (6.4-8.2)
[2020-11-14] MEDS ORDERED: CLINDAMYCIN 900MG IV 50 ML IV ONE (04:30)
[2020-11-14] MEDS ORDERED: InsuLIN REG 1unit/0.01ml Soln (100units/ml) IV ONE (04:30)
[2020-11-14] MEDS ORDERED: NITROGLYCERIN 0.4 MG SL TAB SL PRN (06:30)
[2020-11-14] MEDS ORDERED: SODIUM CHLORIDE 0.9% 1,000 ML IV SCH (06:30)
[2020-11-14] MEDS ORDERED: MORPHINE SULFATE INJECTION 2 MG/ML SYRG IV PRN (06:30)
[2020-11-14] MEDS ORDERED: DEXTROSE (50%) 50ML SYRG IV PRN (06:30)
[2020-11-14] MEDS ORDERED: LORazepam 2MG/ML-1ML VIAL IV PRN (06:30)
[2020-11-14] MEDS ORDERED: ACETAMINOPHEN 325 MG TAB PO PRN (06:30)
[2020-11-14] MEDS ORDERED: DOCUSATE SOD 100 MG CAP PO PRN (06:30)
[2020-11-14 07:35] LABS: Albumin 3.1 g/dL (3.4-5.0); Potassium 3.4 mmol/L (3.5-5.1)
[2020-11-14 07:39] LABS: BUN/Creatinine Ratio 17.1; Basophils # (auto) 0 10 ^3/uL (0-0.2); Basophils % (auto) 0.3 % (0.0-2.0); Bilirubin, Total 0.3 mg/dL (0.2-1.0); Eosinophils # (auto) 0.1 10 ^3/uL (0-0.8); Eosinophils % (auto) 1.7 % (0.0-7.0); Hematocrit 40.5 % (36.0-46.0); Hemoglobin 13.6 g/dL (12.2-16.2); Lymphocytes # (auto) 2.4 10 ^3/uL (0.4-5.4); Lymphocytes % (auto) 31.8 % (10.0-50.0); Mean Corpuscular Hgb Conc. 33.5 g/dL (32.0-36.0); Mean Corpuscular Volume 86.5 fL (80.0-100.0); Monocytes # (auto) 0.5 10 ^3/uL (0-1.3); Monocytes % (auto) 7.2 % (0.0-12.0); Neutrophils # (auto) 4.5 10 ^3/uL (1.6-8.6); Red Blood Cells 4.68 10^6/uL (4.0-5.20); Red Cell Distribution Width 15.6 % (11.8-14.3); Total Protein 7.2 g/dL (6.4-8.2); White Blood Cell 7.6 10^3/uL (4.4-10.8)
[2020-11-14] MEDS: HYDROcodone-ACET 5/325MG TAB PO PRN (07:42)
[2020-11-14] MEDS: InsuLIN REG 1unit/0.01ml Soln (100units/ml) SC SCH ×4 (07:47→22:53)
[2020-11-14] MEDS: ACCU-CHEK COMFORT CURVE STRIP VI SCH ×4 (07:48→22:52)
[2020-11-14] MEDS: ASCORBIC ACID 500 MG TAB PO SCH ×2 (09:49→22:52)
[2020-11-14] MEDS: ENOXAPARIN SOD 40 MG/0.4 ML SYRINGE SC SCH (09:49)
[2020-11-14] MEDS: MULTIPLE VITAMIN TAB PO SCH (09:49)
[2020-11-14] MEDS: ZINC SULFATE 220mg CAP or TAB PO SCH (09:49)
[2020-11-14] MEDS ORDERED: PROPOFOL 10 MG/ML 20 ML IV ONE (09:51)
[2020-11-14] MEDS ORDERED: ONDANSETRON HCL 4 MG/2 ML VIAL ONE (09:51)
[2020-11-14] MEDS ORDERED: SODIUM CHLORIDE LOCK 0 ML ONE (09:51)
[2020-11-14] MEDS ORDERED: fentaNYL CITRATE 100 MCG/2 ML VL ONE (09:51)
[2020-11-14] MEDS ORDERED: MIDAZOLAM HCL 2MG/2ML 2ml VIAL (1mg/ml) ONE (09:51)
[2020-11-14] MEDS ORDERED: BUPIVACAINE 0.25% INJ 50ML VIAL ONE (09:57)
[2020-11-14] MEDS ORDERED: NEOMYCIN-BACITRACIN-POLYM 15GM TOP OINT TOP ONE (09:57)
[2020-11-14 10:32] LABS: INR 0.99 (0.9-1.15); Partial Thromboplastin Time 24.4 sec (23.6-33.0)
[2020-11-14] MEDS: FAMOTIDINE (10MG/ML) 2ML VL IV SCH ×2 (10:41→22:50)
[2020-11-14] MEDS ORDERED: ceFAZolin 1GM VL ONE (11:04)
[2020-11-14] MEDS ORDERED: HYDROmorphone HCL 2 MG/ML VL IV PRN (11:15)
[2020-11-14] MEDS ORDERED: METOCLOPRAMIDE HCL 5MG/ml INJ 2ml VIAL IV PRN (11:15)
[2020-11-14] MEDS ORDERED: MORPHINE SULFATE 4 MG/ML SYR/VIAL IV PRN (11:15)
[2020-11-14] MEDS ORDERED: ACCU-CHEK COMFORT CURVE STRIP VI ONE (11:15)
[2020-11-14] MEDS ORDERED: ceFAZolin 1GM/50ML 100 ML IV ONE (11:17)
[2020-11-14] MEDS: ONDANSETRON HCL 4 MG/2 ML VIAL IV PRN ×2 (12:30→21:19)
[2020-11-14] MEDS: MORPHINE SULFATE 4 MG/ML SYR/VIAL IV PRN ×2 (12:30→21:17)
[2020-11-14] MEDS ORDERED: CLINDAMYCIN 600MG IV 50 ML IV SCH (14:00)
[2020-11-14] MEDS ORDERED: LINEZOLID 600MG/300ML 300 ML IV ONE (15:00)
[2020-11-14] MEDS: SODIUM CHLORIDE 0.9% 1,000 ML IV SCH (15:04)
[2020-11-14 22:00] VITALS: BP 112/66
[2020-11-14] MEDS: METOPROLOL TARTRATE 25 MG TAB PO SCH (22:51)
[2020-11-14] MEDS: LINEZOLID 600MG/300ML 300 ML IV SCH (22:51)
[2020-11-15 05:00] VITALS: BP 128/69
[2020-11-15 06:00] LABS: Basophils # (auto) 0 10 ^3/uL (0-0.2); Basophils % (auto) 0.3 % (0.0-2.0); Eosinophils # (auto) 0.1 10 ^3/uL (0-0.8); Eosinophils % (auto) 1.3 % (0.0-7.0); Hematocrit 39.7 % (36.0-46.0); Hemoglobin 13.2 g/dL (12.2-16.2); Lymphocytes % (auto) 35.3 % (10.0-50.0); Mean Corpuscular Hemoglobin 29.7 pg (28.0-32.0); Mean Corpuscular Hgb Conc. 33.4 g/dL (32.0-36.0); Mean Corpuscular Volume 88.9 fL (80.0-100.0); Monocytes # (auto) 0.6 10 ^3/uL (0-1.3); Monocytes % (auto) 6.8 % (0.0-12.0); Neutrophils # (auto) 4.7 10 ^3/uL (1.6-8.6); Neutrophils % (auto) 56.3 % (37.0-80.0); Red Blood Cells 4.46 10^6/uL (4.0-5.20); Red Cell Distribution Width 15.9 % (11.8-14.3); White Blood Cell 8.4 10^3/uL (4.4-10.8)
[2020-11-15 06:12] LABS: Albumin 2.7 g/dL (3.4-5.0); Calcium 8.5 mg/dL (8.5-10.1); Potassium 3.8 mmol/L (3.5-5.1)
[2020-11-15] MEDS: InsuLIN REG 1unit/0.01ml Soln (100units/ml) SC SCH ×4 (06:13→22:59)
[2020-11-15 06:16] LABS: BUN/Creatinine Ratio 18.2; Bilirubin, Total 0.3 mg/dL (0.2-1.0); Total Protein 6.5 g/dL (6.4-8.2)
[2020-11-15] MEDS: ACCU-CHEK COMFORT CURVE STRIP VI SCH ×4 (06:25→23:09)
[2020-11-15] MEDS ORDERED: ceFAZolin 1GM VL ONE (07:47)
[2020-11-15] MEDS ORDERED: BUPIVACAINE 0.25% INJ 50ML VIAL ONE (07:47)
[2020-11-15] MEDS ORDERED: NEOMYCIN-BACITRACIN-POLYM 15GM TOP OINT TOP ONE (07:47)
[2020-11-15] MEDS ORDERED: ceFAZolin 1GM/50ML 100 ML IV ONE (08:04)
[2020-11-15] MEDS ORDERED: fentaNYL CITRATE 100 MCG/2 ML VL ONE (08:20)
[2020-11-15] MEDS ORDERED: MEPERIDINE HCL (25 MG/ML) 1ML VIAL ONE (08:20)
[2020-11-15] MEDS ORDERED: MIDAZOLAM HCL 2MG/2ML 2ml VIAL (1mg/ml) ONE (08:20)
[2020-11-15] MEDS ORDERED: PROPOFOL 10 MG/ML 20 ML IV ONE (08:27)
[2020-11-15 08:41] VITALS: BP 131/89
[2020-11-15] MEDS ORDERED: MIDAZOLAM HCL 2MG/2ML 2ml VIAL (1mg/ml) IV PRN (09:45)
[2020-11-15] MEDS ORDERED: LABETALOL HCL 5 MG/ML 4ML SYRINGE IV PRN (09:45)
[2020-11-15] MEDS ORDERED: ePHEDrine SULFATE 50 MG/ML AMP IV PRN (09:45)
[2020-11-15] MEDS ORDERED: ONDANSETRON HCL 4 MG/2 ML VIAL IV PRN (09:45)
[2020-11-15] MEDS ORDERED: MORPHINE SULFATE 4 MG/ML SYR/VIAL IV PRN (09:45)
[2020-11-15] MEDS ORDERED: HYDROmorphone HCL 2 MG/ML VL IV PRN (09:45)
[2020-11-15] MEDS: ENOXAPARIN SOD 40 MG/0.4 ML SYRINGE SC SCH (10:00)
[2020-11-15] MEDS: ZINC SULFATE 220mg CAP or TAB PO SCH (10:57)
[2020-11-15] MEDS: ASCORBIC ACID 500 MG TAB PO SCH ×2 (10:57→23:09)
[2020-11-15] MEDS: MULTIPLE VITAMIN TAB PO SCH (10:57)
[2020-11-15] MEDS: FAMOTIDINE (10MG/ML) 2ML VL IV SCH ×2 (10:57→23:08)
[2020-11-15] MEDS: LINEZOLID 600MG/300ML 300 ML IV SCH ×2 (10:58→23:08)
[2020-11-15] MEDS: METOPROLOL TARTRATE 25 MG TAB PO SCH ×2 (10:58→23:09)
[2020-11-15] MEDS: HYDROcodone-ACET 5/325MG TAB PO PRN (10:59)
[2020-11-15] MEDS: SODIUM CHLORIDE 0.9% 1,000 ML IV SCH (11:21)
[2020-11-15 13:24] VITALS: BP 116/79
[2020-11-15] MEDS: MORPHINE SULFATE 4 MG/ML SYR/VIAL IV PRN ×3 (14:48→23:10)
[2020-11-15] MEDS: ONDANSETRON HCL 4 MG/2 ML VIAL IV PRN ×2 (15:30→23:11)
[2020-11-15 16:43] VITALS: BP 131/88
[2020-11-15] MEDS: Glucerna Carbsteady SHAKE Vanilla 8oz PO SCH (18:00)
[2020-11-15 22:00] VITALS: BP 130/81
[2020-11-16 05:00] VITALS: BP 123/66
[2020-11-16] MEDS: SODIUM CHLORIDE 0.9% 1,000 ML IV SCH (06:06)
[2020-11-16] MEDS: ACCU-CHEK COMFORT CURVE STRIP VI SCH ×4 (06:06→20:58)
[2020-11-16] MEDS: MORPHINE SULFATE 4 MG/ML SYR/VIAL IV PRN ×3 (06:07→20:59)
[2020-11-16] MEDS: ONDANSETRON HCL 4 MG/2 ML VIAL IV PRN ×3 (06:08→20:58)
[2020-11-16 06:24] LABS: Albumin 2.3 g/dL (3.4-5.0); BUN/Creatinine Ratio 11.1; Bilirubin, Total 0.4 mg/dL (0.2-1.0); Calcium 8.5 mg/dL (8.5-10.1); Total Protein 6.1 g/dL (6.4-8.2)
[2020-11-16] MEDS: InsuLIN REG 1unit/0.01ml Soln (100units/ml) SC SCH ×4 (06:34→20:44)
[2020-11-16 06:36] LABS: Basophils # (auto) 0.1 10 ^3/uL (0-0.2); Basophils % (auto) 0.8 % (0.0-2.0); Eosinophils # (auto) 0.1 10 ^3/uL (0-0.8); Eosinophils % (auto) 1.5 % (0.0-7.0); Hemoglobin 12.9 g/dL (12.2-16.2); Lymphocytes # (auto) 1.7 10 ^3/uL (0.4-5.4); Lymphocytes % (auto) 22.2 % (10.0-50.0); Mean Corpuscular Hemoglobin 29.4 pg (28.0-32.0); Mean Corpuscular Hgb Conc. 33.8 g/dL (32.0-36.0); Monocytes # (auto) 0.6 10 ^3/uL (0-1.3); Monocytes % (auto) 7.8 % (0.0-12.0); Neutrophils # (auto) 5.3 10 ^3/uL (1.6-8.6); Neutrophils % (auto) 67.7 % (37.0-80.0); Nucleated Red Blood Cells % 0.1 %; Red Blood Cells 4.37 10^6/uL (4.0-5.20); Red Cell Distribution Width 15.8 % (11.8-14.3); White Blood Cell 7.9 10^3/uL (4.4-10.8)
[2020-11-16 08:35] VITALS: BP 102/59
[2020-11-16] MEDS: Glucerna Carbsteady SHAKE Vanilla 8oz PO SCH ×3 (08:37→18:00)
[2020-11-16] MEDS: MULTIPLE VITAMIN TAB PO SCH (10:35)
[2020-11-16] MEDS: METOPROLOL TARTRATE 25 MG TAB PO SCH ×2 (10:37→20:57)
[2020-11-16] MEDS: ASCORBIC ACID 500 MG TAB PO SCH ×2 (10:37→20:57)
[2020-11-16] MEDS: ENOXAPARIN SOD 40 MG/0.4 ML SYRINGE SC SCH (10:37)
[2020-11-16] MEDS: ZINC SULFATE 220mg CAP or TAB PO SCH (10:37)
[2020-11-16] MEDS: LINEZOLID 600MG/300ML 300 ML IV SCH ×2 (10:46→20:56)
[2020-11-16] MEDS: FAMOTIDINE (10MG/ML) 2ML VL IV SCH ×2 (10:48→20:56)
[2020-11-16 12:46] VITALS: BP 112/82
[2020-11-16] MEDS: HYDROcodone-ACET 5/325MG TAB PO PRN ×2 (16:57→23:30)
[2020-11-16 17:30] VITALS: BP 140/87
[2020-11-16 22:00] VITALS: BP 129/97
[2020-11-17] MEDS: MORPHINE SULFATE 4 MG/ML SYR/VIAL IV PRN ×3 (01:45→15:29)
[2020-11-17] MEDS: ONDANSETRON HCL 4 MG/2 ML VIAL IV PRN ×3 (01:46→15:29)
[2020-11-17] MEDS: SODIUM CHLORIDE 0.9% 1,000 ML IV SCH (03:00)
[2020-11-17 05:00] VITALS: BP 112/63
[2020-11-17] MEDS: ACCU-CHEK COMFORT CURVE STRIP VI SCH ×3 (05:30→17:23)
[2020-11-17] MEDS: InsuLIN REG 1unit/0.01ml Soln (100units/ml) SC SCH ×3 (05:30→17:24)
[2020-11-17] MEDS: HYDROcodone-ACET 5/325MG TAB PO PRN (05:31)
[2020-11-17] MEDS: Glucerna Carbsteady SHAKE Vanilla 8oz PO SCH ×2 (08:00→12:00)
[2020-11-17 08:50] LABS: Basophils # (auto) 0 10 ^3/uL (0-0.2); Basophils % (auto) 0.4 % (0.0-2.0); Eosinophils # (auto) 0.1 10 ^3/uL (0-0.8); Eosinophils % (auto) 1.6 % (0.0-7.0); Hematocrit 37.3 % (36.0-46.0); Hemoglobin 12.6 g/dL (12.2-16.2); Lymphocytes # (auto) 1.6 10 ^3/uL (0.4-5.4); Lymphocytes % (auto) 32.6 % (10.0-50.0); Mean Corpuscular Hemoglobin 29.5 pg (28.0-32.0); Mean Corpuscular Hgb Conc. 33.7 g/dL (32.0-36.0); Mean Corpuscular Volume 87.5 fL (80.0-100.0); Monocytes # (auto) 0.4 10 ^3/uL (0-1.3); Monocytes % (auto) 9.2 % (0.0-12.0); Neutrophils # (auto) 2.7 10 ^3/uL (1.6-8.6); Neutrophils % (auto) 56.2 % (37.0-80.0); Nucleated Red Blood Cells % 0.3 %; Red Blood Cells 4.26 10^6/uL (4.0-5.20); Red Cell Distribution Width 15.6 % (11.8-14.3); White Blood Cell 4.8 10^3/uL (4.4-10.8)
[2020-11-17 09:00] VITALS: BP 134/68
[2020-11-17 09:01] LABS: BUN/Creatinine Ratio 10.7; Calcium 8.8 mg/dL (8.5-10.1); Potassium 3.8 mmol/L (3.5-5.1)
[2020-11-17 09:31] LABS: INR 1.05 (0.9-1.15); Partial Thromboplastin Time 26.5 sec (23.6-33.0)
[2020-11-17] MEDS: ZINC SULFATE 220mg CAP or TAB PO SCH (09:32)
[2020-11-17] MEDS: ENOXAPARIN SOD 40 MG/0.4 ML SYRINGE SC SCH (09:32)
[2020-11-17] MEDS: ASCORBIC ACID 500 MG TAB PO SCH (09:32)
[2020-11-17] MEDS: METOPROLOL TARTRATE 25 MG TAB PO SCH (09:34)
[2020-11-17] MEDS: FAMOTIDINE (10MG/ML) 2ML VL IV SCH (09:34)
[2020-11-17] MEDS: LINEZOLID 600MG/300ML 300 ML IV SCH (09:36)
[2020-11-17] MEDS: MULTIPLE VITAMIN TAB PO SCH (09:45)
[2020-11-17] MEDS ORDERED: SACC250C PO (12:38)
[2020-11-17] MEDS ORDERED: cefTRIAXone 1GM/50ML D5W 50 ML IV ONE (12:45)
[2020-11-17 13:00] VITALS: BP 122/83
[2020-11-17] MEDS ORDERED: LIDOCAINE 1% (LOCAL ANESTH.) PF 5ml SDV ID ONE (14:45)
[2020-11-17 16:29] VITALS: BP 106/56
[2020-11-17 17:00] VITALS: BP 129/83
[2020-11-17] MEDS ORDERED: SODIUM CHLOR 0.9% PF (SALINE LOCK) 10ML VIAL/SYR IV SCH (22:00)
[2020-11-18] MEDS ORDERED: cefTRIAXone 1GM/50ML D5W 50 ML IV SCH (09:00)
== END 2020-11-17 17:47 | disposition home health service (06) | DRG 504 ==
LOC: ER 22:19 → TELE 11-14 06:27 → WEST WING 11-14 10:46
PROVIDERS: ADMIT Nurse Practitioner Family; ATTEND Internal Medicine
PROC: 0QBP0ZZ Excision of Left Metatarsal, Open Approach (ICD-10-PCS; principal; 2020-11-15 08:18)
PROC: 05HY33Z Insertion of Infusion Device into Upper Vein, Percutaneous Approach (ICD-10-PCS; 2020-11-17)
DX: T87.54 Necrosis of amputation stump, left lower extremity (principal); M86.8X7 Other osteomyelitis, ankle and foot; L03.116 Cellulitis of left lower limb; I50.22 Chronic systolic (congestive) heart failure; E87.1 Hypo-osmolality and hyponatremia; Z68.41 Body mass index [BMI] 40.0-44.9, adult; E11.69 Type 2 diabetes mellitus with other specified complication; I11.0 Hypertensive heart disease with heart failure; E11.621 Type 2 diabetes mellitus with foot ulcer; E11.21 Type 2 diabetes mellitus with diabetic nephropathy; L97.529 Non-pressure chronic ulcer of other part of left foot with unspecified severity; E11.65 Type 2 diabetes mellitus with hyperglycemia; E88.09 Other disorders of plasma-protein metabolism, not elsewhere classified; G47.33 Obstructive sleep apnea (adult) (pediatric); F41.9 Anxiety disorder, unspecified; E03.9 Hypothyroidism, unspecified; E11.22 Type 2 diabetes mellitus with diabetic chronic kidney disease; E66.01 Morbid (severe) obesity due to excess calories; E78.5 Hyperlipidemia, unspecified; Z20.822 Contact with and (suspected) exposure to COVID-19; F32.9 Major depressive disorder, single episode, unspecified; J45.909 Unspecified asthma, uncomplicated; N18.9 Chronic kidney disease, unspecified; Z88.8 Allergy status to other drugs, medicaments and biological substances; Z91.013 Allergy to seafood; Z83.3 Family history of diabetes mellitus
CPT/HCPCS: 36415; 36569; 73718; 80048; 80053; 80061; 82962; 83036; 84443; 84702; 85025; 85610; 85730; 87070; 87075; 87077; 87081; 87186; 87205; 87426; 96361; 96365; 96366; 96367; 96375; G0378; J0690; J0696; J1815; J2250; J2405; J2704; J3490

== ENCOUNTER 2020-12-16 22:48 | Inpatient (IN) | payer OTHER ==
[~2020-12-16] VITALS: Ht 162.6 cm; Wt 110.1 kg
[~2020-12-16 22:48] MED LIST changes: +MONT-8 PO; -MONT10TA42 PO; +SACC250C PO
[2020-12-17 01:11] LABS: White Blood Cell 9.9 10^3/uL (4.4-10.8)
[2020-12-17 01:12] LABS: Basophils # (auto) 0.1 10 ^3/uL (0-0.2); Basophils % (auto) 0.9 % (0.0-2.0); Eosinophils # (auto) 0.2 10 ^3/uL (0-0.8); Eosinophils % (auto) 1.6 % (0.0-7.0); Hematocrit 40.3 % (36.0-46.0); Hemoglobin 13.6 g/dL (12.2-16.2); Lymphocytes # (auto) 3.2 10 ^3/uL (0.4-5.4); Lymphocytes % (auto) 32.4 % (10.0-50.0); Mean Corpuscular Hemoglobin 28.6 pg (28.0-32.0); Mean Corpuscular Hgb Conc. 33.6 g/dL (32.0-36.0); Monocytes # (auto) 0.6 10 ^3/uL (0-1.3); Monocytes % (auto) 5.6 % (0.0-12.0); Neutrophils # (auto) 5.9 10 ^3/uL (1.6-8.6); Neutrophils % (auto) 59.5 % (37.0-80.0); Nucleated Red Blood Cells % 0.1 %; Red Blood Cells 4.74 10^6/uL (4.0-5.20); Red Cell Distribution Width 14.6 % (11.8-14.3)
[2020-12-17] MEDS ORDERED: ONDANSETRON HCL 4 MG/2 ML VIAL IV ONE (01:15)
[2020-12-17] MEDS ORDERED: SODIUM CHLORIDE 0.9% 1,000 ML IV ONE (01:15)
[2020-12-17 01:23] LABS: INR 1.05 (0.9-1.15)
[2020-12-17 01:29] LABS: Albumin 3.4 g/dL (3.4-5.0); Potassium 3.8 mmol/L (3.5-5.1)
[2020-12-17 01:39] LABS: BUN/Creatinine Ratio 19.5; Bilirubin, Total 0.2 mg/dL (0.2-1.0); Total Protein 7.4 g/dL (6.4-8.2)
[2020-12-17] MEDS ORDERED: SODIUM CHLORIDE 0.9% 1,000 ML IV SCH (07:15)
[2020-12-17] MEDS ORDERED: DEXTROSE (50%) 50ML SYRG IV PRN (07:15)
[2020-12-17] MEDS: MORPHINE SULFATE 4 MG/ML SYR/VIAL IV PRN ×3 (09:01→20:16)
[2020-12-17] MEDS: CLINDAMYCIN 600MG IV 50 ML IV SCH ×3 (09:01→22:45)
[2020-12-17] MEDS: ONDANSETRON HCL 4 MG/2 ML VIAL IV PRN ×2 (09:01→23:24)
[2020-12-17] MEDS: ACCU-CHEK COMFORT CURVE STRIP VI SCH ×2 (12:13→18:00)
[2020-12-17] MEDS: PANTOPRAZOLE 40 MG/10 ML VIAL INJ IV SCH (12:18)
[2020-12-17] MEDS: InsuLIN REG 1unit/0.01ml Soln (100units/ml) SC SCH ×2 (12:23→18:00)
[2020-12-17] MEDS ORDERED: ROPIVACAINE 0.5% (5MG/ML) 20ML AMPULE IJ ONE (12:38)
[2020-12-17] MEDS ORDERED: MEPERIDINE HCL (25 MG/ML) 1ML VIAL ONE (13:01)
[2020-12-17] MEDS ORDERED: MIDAZOLAM HCL 2MG/2ML 2ml VIAL (1mg/ml) ONE (13:02)
[2020-12-17] MEDS ORDERED: fentaNYL CITRATE 100 MCG/2 ML VL ONE (13:02)
[2020-12-17] MEDS ORDERED: ceFAZolin 1GM/50ML 100 ML IV ONE (13:03)
[2020-12-17] MEDS ORDERED: ceFAZolin 1GM VL ONE (13:04)
[2020-12-17] MEDS ORDERED: PROPOFOL 10 MG/ML 20 ML IV ONE (13:15)
[2020-12-17] MEDS ORDERED: LABETALOL HCL 5 MG/ML 4ML SYRINGE IV PRN (14:15)
[2020-12-17] MEDS ORDERED: ONDANSETRON HCL 4 MG/2 ML VIAL IV PRN (14:15)
[2020-12-17] MEDS ORDERED: HYDROmorphone HCL 2 MG/ML VL IV PRN (14:15)
[2020-12-17] MEDS ORDERED: ePHEDrine SULFATE 50 MG/ML AMP IV PRN (14:15)
[2020-12-17] MEDS ORDERED: MORPHINE SULFATE 4 MG/ML SYR/VIAL IV PRN (14:15)
[2020-12-17] MEDS ORDERED: MIDAZOLAM HCL 2MG/2ML 2ml VIAL (1mg/ml) IV PRN (14:15)
[2020-12-17] MEDS: SODIUM CHLORIDE 0.9% 1,000 ML IV SCH (15:00)
[2020-12-17 17:05] VITALS: BP 141/88
[2020-12-17 19:00] VITALS: BP_SYST 142; BP_DIAS 93; BP_DIAS 97
[2020-12-17 22:00] VITALS: BP 142/93
[2020-12-17] MEDS: INSULIN LANTUS (GLARGINE) 1 /0.01ml (100units/ml) SC SCH (23:15)
[2020-12-18] MEDS: InsuLIN REG 1unit/0.01ml Soln (100units/ml) SC SCH ×5 (00:23→23:33)
[2020-12-18] MEDS: ACCU-CHEK COMFORT CURVE STRIP VI SCH ×5 (00:24→23:34)
[2020-12-18] MEDS: LORazepam 0.5 MG TAB PO PRN (01:08)
[2020-12-18] MEDS: MORPHINE SULFATE 4 MG/ML SYR/VIAL IV PRN ×2 (03:58→10:13)
[2020-12-18] MEDS ORDERED: INFLUENZA QUAD 2021-2022 0.5 ML SYRG IM ONE (04:00)
[2020-12-18] MEDS ORDERED: TRAZ100T3 PO ×2 (04:06)
[2020-12-18] MEDS ORDERED: INSLISPI SC (04:07)
[2020-12-18] MEDS ORDERED: INSLANTI SC (04:07)
[2020-12-18] MEDS ORDERED: ALBUAER3 IN (04:08)
[2020-12-18] MEDS ORDERED: PANT40TA2 PO (04:08)
[2020-12-18 05:00] VITALS: BP 127/75
[2020-12-18 05:37] LABS: Basophils # (auto) 0 10 ^3/uL (0-0.2); Basophils % (auto) 0.4 % (0.0-2.0); Eosinophils # (auto) 0.1 10 ^3/uL (0-0.8); Eosinophils % (auto) 1.6 % (0.0-7.0); Hematocrit 37.4 % (36.0-46.0); Hemoglobin 12.7 g/dL (12.2-16.2); Lymphocytes # (auto) 2.5 10 ^3/uL (0.4-5.4); Lymphocytes % (auto) 28.1 % (10.0-50.0); Mean Corpuscular Hemoglobin 29.2 pg (28.0-32.0); Mean Corpuscular Hgb Conc. 34.1 g/dL (32.0-36.0); Mean Corpuscular Volume 85.6 fL (80.0-100.0); Monocytes # (auto) 0.6 10 ^3/uL (0-1.3); Monocytes % (auto) 6.2 % (0.0-12.0); Neutrophils # (auto) 5.7 10 ^3/uL (1.6-8.6); Neutrophils % (auto) 63.7 % (37.0-80.0); Nucleated Red Blood Cells % 0.1 %; Red Blood Cells 4.37 10^6/uL (4.0-5.20); Red Cell Distribution Width 14.7 % (11.8-14.3); White Blood Cell 8.9 10^3/uL (4.4-10.8)
[2020-12-18 05:49] LABS: Calcium 8.5 mg/dL (8.5-10.1); Magnesium 1.9 mg/dL (1.6-2.6); Potassium 3.8 mmol/L (3.5-5.1)
[2020-12-18] MEDS: CLINDAMYCIN 600MG IV 50 ML IV SCH ×2 (06:14→14:10)
[2020-12-18] MEDS: SODIUM CHLORIDE 0.9% 1,000 ML IV SCH ×2 (06:59→10:15)
[2020-12-18 09:00] VITALS: BP 120/70
[2020-12-18] MEDS ORDERED: cefTRIAXone 1GM/50ML D5W 50 ML IV SCH (09:00)
[2020-12-18] MEDS: PANTOPRAZOLE 40 MG/10 ML VIAL INJ IV SCH (10:00)
[2020-12-18] MEDS ORDERED: SACUBITRIL-VALSARTAN 24mg/26mg TAB EACH EAR SCH (10:00)
[2020-12-18] MEDS ORDERED: SACUBITRIL-VALSARTAN 24mg/26mg TAB PO ONE (10:00)
[2020-12-18] MEDS: METOPROLOL SUCCINATE XL 50 MG TAB PO SCH (10:14)
[2020-12-18] MEDS ORDERED: MAGNESIUM SULFATE 1GM/100ML 100 ML IV ONE (12:15)
[2020-12-18] MEDS ORDERED: MORPHINE SULFATE 4 MG/ML SYR/VIAL IV PRN (12:30)
[2020-12-18 12:43] VITALS: BP 113/76
[2020-12-18] MEDS: ONDANSETRON HCL 4 MG/2 ML VIAL IV PRN (14:10)
[2020-12-18] MEDS ORDERED: VANCOMYCIN PER PHARMACY 0 MG IV SCH (15:00)
[2020-12-18] MEDS ORDERED: VANCOMYCIN 1GM/250ML 250 ML IV SCH (16:00)
[2020-12-18] MEDS ORDERED: diphenhdrAMINE HCL 50 MG/1 ML VL IV ONE (17:15)
[2020-12-18 17:27] VITALS: BP 123/73
[2020-12-18] MEDS ORDERED: ERTAPENEM SOD INJ 1 GM in SODIUM CHL 0.9% 50 ML IV ONE ×2 (18:00→20:30)
[2020-12-18] MEDS: MORPHINE SULFATE INJECTION 2 MG/ML SYRG IV PRN ×2 (18:04→22:08)
[2020-12-18] MEDS: LINEZOLID 600MG/300ML 300 ML IV SCH (21:54)
[2020-12-18] MEDS: SACUBITRIL-VALSARTAN 24mg/26mg TAB PO SCH (21:54)
[2020-12-18] MEDS: INSULIN LANTUS (GLARGINE) 1 /0.01ml (100units/ml) SC SCH (21:56)
[2020-12-18] MEDS ORDERED: SACUBITRIL-VALSARTAN 24mg/26mg TAB PO SCH (22:00)
[2020-12-18 22:20] VITALS: BP 126/84
[2020-12-19] MEDS: MORPHINE SULFATE INJECTION 2 MG/ML SYRG IV PRN ×2 (03:18→08:36)
[2020-12-19] MEDS: ONDANSETRON HCL 4 MG/2 ML VIAL IV PRN ×3 (03:19→23:50)
[2020-12-19] MEDS: SODIUM CHLORIDE 0.9% 1,000 ML IV SCH (04:54)
[2020-12-19 05:00] VITALS: BP 132/81
[2020-12-19] MEDS: InsuLIN REG 1unit/0.01ml Soln (100units/ml) SC SCH ×3 (05:53→18:18)
[2020-12-19] MEDS: ACCU-CHEK COMFORT CURVE STRIP VI SCH ×4 (05:53→20:50)
[2020-12-19] MEDS: LEVOTHYROXINE SODIUM 50 MCG TAB PO SCH (05:54)
[2020-12-19 06:35] LABS: Basophils # (auto) 0 10 ^3/uL (0-0.2); Basophils % (auto) 0.4 % (0.0-2.0); Eosinophils # (auto) 0.1 10 ^3/uL (0-0.8); Eosinophils % (auto) 1.8 % (0.0-7.0); Hemoglobin 12.5 g/dL (12.2-16.2); Lymphocytes # (auto) 2.1 10 ^3/uL (0.4-5.4); Lymphocytes % (auto) 34.5 % (10.0-50.0); Mean Corpuscular Hemoglobin 28.8 pg (28.0-32.0); Mean Corpuscular Hgb Conc. 33.7 g/dL (32.0-36.0); Mean Corpuscular Volume 85.5 fL (80.0-100.0); Monocytes # (auto) 0.5 10 ^3/uL (0-1.3); Monocytes % (auto) 8.5 % (0.0-12.0); Neutrophils # (auto) 3.4 10 ^3/uL (1.6-8.6); Neutrophils % (auto) 54.8 % (37.0-80.0); Nucleated Red Blood Cells % 0.1 %; Red Blood Cells 4.33 10^6/uL (4.0-5.20); Red Cell Distribution Width 14.5 % (11.8-14.3); White Blood Cell 6.2 10^3/uL (4.4-10.8)
[2020-12-19 08:44] VITALS: BP 103/66
[2020-12-19] MEDS: SACUBITRIL-VALSARTAN 24mg/26mg TAB PO SCH ×2 (09:51→21:30)
[2020-12-19] MEDS: METOPROLOL SUCCINATE XL 50 MG TAB PO SCH (09:52)
[2020-12-19] MEDS: ERTAPENEM SOD INJ 1 GM in SODIUM CHL 0.9% 50 ML IV SCH (10:17)
[2020-12-19] MEDS: LINEZOLID 600MG/300ML 300 ML IV SCH ×2 (11:35→21:30)
[2020-12-19] MEDS: HYDROmorphone HCL 2 MG/ML VL IV PRN ×3 (11:47→20:50)
[2020-12-19 12:32] VITALS: BP 141/89
[2020-12-19 16:56] VITALS: BP 130/83
[2020-12-19] MEDS: INSULIN LANTUS (GLARGINE) 1 /0.01ml (100units/ml) SC SCH (21:40)
[2020-12-19 22:28] VITALS: BP 121/76
[2020-12-19 22:29] VITALS: BP 121/76
[2020-12-20] MEDS: ACCU-CHEK COMFORT CURVE STRIP VI SCH ×4 (00:01→17:56)
[2020-12-20] MEDS: HYDROmorphone HCL 2 MG/ML VL IV PRN ×6 (00:49→22:49)
[2020-12-20] MEDS: InsuLIN REG 1unit/0.01ml Soln (100units/ml) SC SCH ×4 (00:50→17:57)
[2020-12-20 05:07] VITALS: BP 112/65
[2020-12-20] MEDS: ONDANSETRON HCL 4 MG/2 ML VIAL IV PRN ×5 (05:55→22:49)
[2020-12-20] MEDS: LEVOTHYROXINE SODIUM 50 MCG TAB PO SCH (06:00)
[2020-12-20 09:00] VITALS: BP 134/80
[2020-12-20] MEDS: LINEZOLID 600MG/300ML 300 ML IV SCH ×2 (09:30→22:27)
[2020-12-20] MEDS: METOPROLOL SUCCINATE XL 50 MG TAB PO SCH (09:30)
[2020-12-20] MEDS: SACUBITRIL-VALSARTAN 24mg/26mg TAB PO SCH ×2 (09:30→22:27)
[2020-12-20] MEDS: LORazepam 0.5 MG TAB PO PRN ×2 (10:15→18:17)
[2020-12-20] MEDS: ERTAPENEM SOD INJ 1 GM in SODIUM CHL 0.9% 50 ML IV SCH (10:54)
[2020-12-20 13:00] VITALS: BP 129/83
[2020-12-20 17:00] VITALS: BP 133/83
[2020-12-20] MEDS: diphenhdrAMINE HCL 50 MG/1 ML VL IV PRN (20:25)
[2020-12-20 22:00] VITALS: BP 126/74
[2020-12-20] MEDS: INSULIN LANTUS (GLARGINE) 1 /0.01ml (100units/ml) SC SCH (22:29)
[2020-12-21] MEDS: ACCU-CHEK COMFORT CURVE STRIP VI SCH ×5 (00:30→23:43)
[2020-12-21] MEDS: InsuLIN REG 1unit/0.01ml Soln (100units/ml) SC SCH ×5 (00:34→23:47)
[2020-12-21 05:00] VITALS: BP 119/63
[2020-12-21] MEDS: LEVOTHYROXINE SODIUM 50 MCG TAB PO SCH (05:38)
[2020-12-21] MEDS: HYDROmorphone HCL 2 MG/ML VL IV PRN ×5 (05:38→23:57)
[2020-12-21] MEDS: ONDANSETRON HCL 4 MG/2 ML VIAL IV PRN ×5 (05:39→23:57)
[2020-12-21 09:00] VITALS: BP 127/88
[2020-12-21] MEDS: ERTAPENEM SOD INJ 1 GM in SODIUM CHL 0.9% 50 ML IV SCH (09:43)
[2020-12-21] MEDS: SACUBITRIL-VALSARTAN 24mg/26mg TAB PO SCH ×2 (09:43→22:15)
[2020-12-21] MEDS: METOPROLOL SUCCINATE XL 50 MG TAB PO SCH (09:45)
[2020-12-21] MEDS: LINEZOLID 600MG/300ML 300 ML IV SCH ×2 (10:38→22:15)
[2020-12-21 13:00] VITALS: BP 118/76
[2020-12-21 17:00] VITALS: BP 126/85
[2020-12-21 20:00] VITALS: BP 124/78
[2020-12-21 22:00] VITALS: BP 124/78
[2020-12-21] MEDS: INSULIN LANTUS (GLARGINE) 1 /0.01ml (100units/ml) SC SCH (22:00)
[2020-12-21] MEDS: diphenhdrAMINE HCL 50 MG/1 ML VL IV PRN (22:02)
[2020-12-21] MEDS: NYSTATIN TOPICAL POWDER 15GM TOP SCH (22:23)
[2020-12-22] MEDS: HYDROmorphone HCL 2 MG/ML VL IV PRN ×3 (04:23→14:00)
[2020-12-22] MEDS: ONDANSETRON HCL 4 MG/2 ML VIAL IV PRN ×3 (04:23→14:00)
[2020-12-22 05:00] VITALS: BP 94/61
[2020-12-22] MEDS: ACCU-CHEK COMFORT CURVE STRIP VI SCH ×2 (06:03→12:14)
[2020-12-22] MEDS: InsuLIN REG 1unit/0.01ml Soln (100units/ml) SC SCH ×2 (06:06→12:15)
[2020-12-22] MEDS: LEVOTHYROXINE SODIUM 50 MCG TAB PO SCH (06:37)
[2020-12-22 09:00] VITALS: BP 104/60
[2020-12-22] MEDS: ERTAPENEM SOD INJ 1 GM in SODIUM CHL 0.9% 50 ML IV SCH (09:19)
[2020-12-22] MEDS: SACUBITRIL-VALSARTAN 24mg/26mg TAB PO SCH (10:00)
[2020-12-22] MEDS: METOPROLOL SUCCINATE XL 50 MG TAB PO SCH (10:00)
[2020-12-22] MEDS: NYSTATIN TOPICAL POWDER 15GM TOP SCH (10:52)
[2020-12-22] MEDS: LINEZOLID 600MG/300ML 300 ML IV SCH (10:52)
[2020-12-22] MEDS ORDERED: SACC250C PO (12:20)
[2020-12-22 13:00] VITALS: BP 110/70
[2020-12-22 14:45] VITALS: BP 127/88
== END 2020-12-22 15:55 | disposition home health service (06) | DRG 629 ==
LOC: ER 22:49 → OVERFLOW 12-17 07:02 → CENTRAL 12-17 11:50
PROVIDERS: ADMIT Nurse Practitioner; ATTEND Internal Medicine
PROC: 0QBP0ZZ Excision of Left Metatarsal, Open Approach (ICD-10-PCS; principal; 2020-12-17 13:17)
DX: E11.69 Type 2 diabetes mellitus with other specified complication (principal); I50.22 Chronic systolic (congestive) heart failure; I13.0 Hypertensive heart and chronic kidney disease with heart failure and stage 1 through stage 4 chronic kidney disease, or unspecified chronic kidney disease; M86.8X7 Other osteomyelitis, ankle and foot; M87.875 Other osteonecrosis, left foot; L02.612 Cutaneous abscess of left foot; Z68.41 Body mass index [BMI] 40.0-44.9, adult; E11.621 Type 2 diabetes mellitus with foot ulcer; E03.9 Hypothyroidism, unspecified; E11.22 Type 2 diabetes mellitus with diabetic chronic kidney disease; Z20.822 Contact with and (suspected) exposure to COVID-19; E66.01 Morbid (severe) obesity due to excess calories; E78.5 Hyperlipidemia, unspecified; E88.09 Other disorders of plasma-protein metabolism, not elsewhere classified; F41.9 Anxiety disorder, unspecified; G47.33 Obstructive sleep apnea (adult) (pediatric); F32.A Depression, unspecified; J45.909 Unspecified asthma, uncomplicated; L97.529 Non-pressure chronic ulcer of other part of left foot with unspecified severity; N18.9 Chronic kidney disease, unspecified; Z83.3 Family history of diabetes mellitus; Z89.412 Acquired absence of left great toe; Z90.49 Acquired absence of other specified parts of digestive tract; Z81.8 Family history of other mental and behavioral disorders; Z88.8 Allergy status to other drugs, medicaments and biological substances; Z88.1 Allergy status to other antibiotic agents; Z91.013 Allergy to seafood; Z88.5 Allergy status to narcotic agent; Z88.2 Allergy status to sulfonamides; E11.21 Type 2 diabetes mellitus with diabetic nephropathy; E11.65 Type 2 diabetes mellitus with hyperglycemia
CPT/HCPCS: 36415; 71045; 73718; 80048; 80053; 82962; 83735; 84443; 84702; 85025; 85610; 86850; 86900; 86901; 87040; 87070; 87075; 87077; 87205; 87426; 90686; 93005; 96361; 96374; C9113; G0378; J0690; J0696; J1335; J1815; J2250; J2405; J2704; J3490

== ENCOUNTER → 2021-01-12 | Outpatient (CLI) | payer OTHER ==
[~2021-01-12] MED LIST changes: +ALBUAER3 IN; +INSLANTI SC; +INSLISPI SC; +PANT40TA2 PO; +TRAZ100T3 PO
[2021-01-12 12:00] LABS: Potassium 4.6 mmol/L (3.5-5.1)
[2021-01-12 12:08] LABS: Free T4 (Free Thyroxine) 1.23 ng/dL (0.89-1.76)
[2021-01-12 12:09] LABS: Free T3 2.87 pg/mL (2.3-4.2)
[2021-01-12 12:26] LABS: Albumin 2.9 g/dL (3.4-5.0); BUN/Creatinine Ratio 25.5; Bilirubin, Total 0.2 mg/dL (0.2-1.0); Calcium 9.3 mg/dL (8.5-10.1)
[2021-01-12 12:35] LABS: Basophils # (auto) 0 10 ^3/uL (0-0.2); Basophils % (auto) 0.3 % (0.0-2.0); Eosinophils # (auto) 0.2 10 ^3/uL (0-0.8); Eosinophils % (auto) 2.7 % (0.0-7.0); Hematocrit 40.5 % (36.0-46.0); Hemoglobin 13.5 g/dL (12.2-16.2); Lymphocytes # (auto) 2.3 10 ^3/uL (0.4-5.4); Lymphocytes % (auto) 33.3 % (10.0-50.0); Mean Corpuscular Hemoglobin 28.1 pg (28.0-32.0); Mean Corpuscular Hgb Conc. 33.4 g/dL (32.0-36.0); Mean Corpuscular Volume 84.2 fL (80.0-100.0); Monocytes # (auto) 0.3 10 ^3/uL (0-1.3); Monocytes % (auto) 4.9 % (0.0-12.0); Neutrophils % (auto) 58.8 % (37.0-80.0); Nucleated Red Blood Cells % 0.3 %; Red Blood Cells 4.81 10^6/uL (4.0-5.20); Red Cell Distribution Width 14.5 % (11.8-14.3); White Blood Cell 6.8 10^3/uL (4.4-10.8)
== END | disposition home or self-care (01) ==
LOC: LAB 09:50
PROVIDERS: ATTEND Internal Medicine Endocrinology, Diabetes & Metabolism
DX: E11.9 Type 2 diabetes mellitus without complications (principal); E03.9 Hypothyroidism, unspecified
CPT/HCPCS: 36415; 80053; 80061; 83036; 84439; 84443; 84481; 85025

== ENCOUNTER 2021-02-05 17:09 | Inpatient (IN) | payer OTHER ==
[~2021-02-05] VITALS: Ht 162.6 cm; Wt 113.0 kg
[2021-02-05 19:47] LABS: Basophils # (auto) 0.1 10 ^3/uL (0-0.2); Eosinophils # (auto) 0.1 10 ^3/uL (0-0.8); Monocytes # (auto) 0.8 10 ^3/uL (0-1.3); Red Cell Distribution Width 15.7 % (11.8-14.3)
[2021-02-05 19:49] LABS: Basophils % (auto) 0.7 % (0.0-2.0); Eosinophils % (auto) 0.8 % (0.0-7.0); Hematocrit 33.5 % (36.0-46.0); Hemoglobin 10.8 g/dL (12.2-16.2); Lymphocytes # (auto) 1.9 10 ^3/uL (0.4-5.4); Lymphocytes % (auto) 14.9 % (10.0-50.0); Mean Corpuscular Hemoglobin 25.8 pg (28.0-32.0); Mean Corpuscular Hgb Conc. 32.2 g/dL (32.0-36.0); Mean Corpuscular Volume 79.9 fL (80.0-100.0); Monocytes % (auto) 6.4 % (0.0-12.0); Neutrophils # (auto) 9.6 10 ^3/uL (1.6-8.6); Neutrophils % (auto) 77.2 % (37.0-80.0); Nucleated Red Blood Cells % 0.1 %; White Blood Cell 12.4 10^3/uL (4.4-10.8)
[2021-02-05 20:18] LABS: Albumin 1.9 g/dL (3.4-5.0); Calcium 8.1 mg/dL (8.5-10.1); Potassium 3.9 mmol/L (3.5-5.1)
[2021-02-05 20:20] LABS: BUN/Creatinine Ratio 13.2
[2021-02-05 20:22] LABS: Bilirubin, Total 0.2 mg/dL (0.2-1.0); Total Protein 6.7 g/dL (6.4-8.2)
[2021-02-06] MEDS ORDERED: CEFEPIME 2 GM in SODIUM CHL 0.9% 50 ML IV ONE ×2
[2021-02-06] MEDS ORDERED: metroNIDAZOLE 500MG/100ML 100 ML IV ONE
[2021-02-06] MEDS ORDERED: MORPHINE SULFATE 4 MG/ML SYR/VIAL IV ONE (00:15)
[2021-02-06] MEDS ORDERED: ONDANSETRON HCL 4 MG/2 ML VIAL ONE (00:41)
[2021-02-06] MEDS ORDERED: ONDANSETRON HCL 4 MG/2 ML VIAL IV ONE (00:45)
[2021-02-06 01:39] LABS: Urine Bacteria FEW /hpf (None Seen); Urine Blood Negative /uL (Negative); Urine Budding Yeast MODERATE /hpf (None Seen); Urine Specific Gravity 1.038 (1.001-1.035); Urine WBC 4 /hpf (0 - 5)
[2021-02-06] MEDS ORDERED: ACETAMINOPHEN 325 MG TAB PO PRN (04:00)
[2021-02-06] MEDS ORDERED: DOCUSATE SOD 100 MG CAP PO PRN (04:00)
[2021-02-06] MEDS ORDERED: HYDROcodone-ACET 5/325MG TAB PO PRN (04:00)
[2021-02-06] MEDS ORDERED: DEXTROSE (50%) 50ML SYRG IV PRN (04:00)
[2021-02-06] MEDS: ALBUMIN 25% 50 ML IV SCH ×3 (04:50→20:28)
[2021-02-06] MEDS: SODIUM CHLORIDE 0.9% 1,000 ML IV SCH ×2 (05:00→20:54)
[2021-02-06] MEDS: MORPHINE SULFATE 4 MG/ML SYR/VIAL IV PRN ×6 (05:27→20:27)
[2021-02-06] MEDS ORDERED: MORPHINE SULFATE INJECTION 2 MG/ML SYRG IV PRN (05:30)
[2021-02-06] MEDS ORDERED: NITROGLYCERIN 0.4 MG SL TAB SL PRN (05:30)
[2021-02-06] MEDS: metroNIDAZOLE 500MG/100ML 100 ML IV SCH ×3 (06:35→21:08)
[2021-02-06] MEDS: ACCU-CHEK COMFORT CURVE STRIP VI SCH ×4 (06:57→21:19)
[2021-02-06] MEDS: InsuLIN REG 1unit/0.01ml Soln (100units/ml) SC SCH ×4 (06:58→21:21)
[2021-02-06] MEDS: CEFEPIME 1 GM in SODIUM CHL 0.9% 50 ML IV SCH ×3 (07:11→22:20)
[2021-02-06 08:13] LABS: Hemoglobin 10.4 g/dL (12.2-16.2); Mean Corpuscular Hemoglobin 25.7 pg (28.0-32.0)
[2021-02-06 08:17] LABS: Hematocrit 32.6 % (36.0-46.0); Mean Corpuscular Hgb Conc. 31.8 g/dL (32.0-36.0); Mean Corpuscular Volume 80.8 fL (80.0-100.0); Red Blood Cells 4.03 10^6/uL (4.0-5.20); Red Cell Distribution Width 15.7 % (11.8-14.3); White Blood Cell 9.5 10^3/uL (4.4-10.8)
[2021-02-06 08:26] LABS: Basophils % (manual) 0 (0.0-2.0); Blast Cells 0; Myelocytes % 0; Promyelocytes % 0; Reactive Lymphocytes 0
[2021-02-06 08:28] LABS: Albumin 1.9 g/dL (3.4-5.0); Calcium 8.2 mg/dL (8.5-10.1); Potassium 4.2 mmol/L (3.5-5.1)
[2021-02-06 08:31] LABS: BUN/Creatinine Ratio 14.3; Bilirubin, Total 0.2 mg/dL (0.2-1.0); Total Protein 6.7 g/dL (6.4-8.2)
[2021-02-06] MEDS: ONDANSETRON HCL 4 MG/2 ML VIAL IV PRN ×2 (09:08→20:51)
[2021-02-06] MEDS: FAMOTIDINE (10MG/ML) 2ML VL IV SCH ×2 (09:53→21:09)
[2021-02-06] MEDS: ASCORBIC ACID 500 MG TAB PO SCH ×2 (09:54→21:09)
[2021-02-06] MEDS: MULTIPLE VITAMIN TAB PO SCH (09:54)
[2021-02-06] MEDS: ZINC SULFATE 220mg CAP or TAB PO SCH (09:54)
[2021-02-06] MEDS: ENOXAPARIN SOD 40 MG/0.4 ML SYRINGE SC SCH (09:54)
[2021-02-06 10:10] LABS: Band Neutrophils % (manual) 11; Eosinophils % (manual) 1 (0-7); Lymphocytes % (manual) 11 (10.0-50.0); Metamyelocytes % 1; Monocytes % (manual) 9 (0-12)
[2021-02-06] MEDS: LINEZOLID 600MG/300ML 300 ML IV SCH ×2 (12:25→17:31)
[2021-02-06 13:46] LABS: INR 1.03 (0.9-1.15); Partial Thromboplastin Time 28.4 sec (23.6-33.0)
[2021-02-06] MEDS ORDERED: ROPIVACAINE 0.5% (5MG/ML) 20ML AMPULE IJ ONE (15:05)
[2021-02-06] MEDS ORDERED: ceFAZolin 1GM VL ONE (15:05)
[2021-02-06] MEDS ORDERED: fentaNYL CITRATE 100 MCG/2 ML VL ONE (15:34)
[2021-02-06] MEDS ORDERED: MIDAZOLAM HCL 2MG/2ML 2ml VIAL (1mg/ml) ONE (15:35)
[2021-02-06] MEDS ORDERED: PROPOFOL 10 MG/ML 20 ML IV ONE (16:21)
[2021-02-06] MEDS ORDERED: HYDROmorphone HCL 2 MG/ML VL IV PRN (16:45)
[2021-02-06] MEDS ORDERED: ONDANSETRON HCL 4 MG/2 ML VIAL IV PRN (16:45)
[2021-02-06] MEDS: INSULIN LANTUS (GLARGINE) 1 /0.01ml (100units/ml) SC SCH (21:20)
[2021-02-06] MEDS: SACUBITRIL-VALSARTAN 24mg/26mg TAB PO SCH (21:25)
[2021-02-06 22:00] VITALS: BP 129/87
[2021-02-07] VITALS (7 sets, daily range): BP systolic 113–136; BP diastolic 74–88
[2021-02-07] MEDS ORDERED: ALBUTEROL SULF HFA 90MCG INH 200DOSE IN SCH
[2021-02-07] MEDS: LORazepam 0.5 MG TAB PO PRN ×2 (00:44→12:22)
[2021-02-07] MEDS: ONDANSETRON HCL 4 MG/2 ML VIAL IV PRN ×5 (01:33→18:30)
[2021-02-07] MEDS: MORPHINE SULFATE 4 MG/ML SYR/VIAL IV PRN ×5 (01:34→18:30)
[2021-02-07] MEDS: ALBUTEROL SULF 2.5 MG/0.5ML(0.5%) NEB SOLN NEB PRN ×2 (01:46→09:16)
[2021-02-07] MEDS: ACCU-CHEK COMFORT CURVE STRIP VI SCH ×4 (05:46→21:50)
[2021-02-07] MEDS: CEFEPIME 1 GM in SODIUM CHL 0.9% 50 ML IV SCH ×3 (05:46→22:00)
[2021-02-07] MEDS: InsuLIN REG 1unit/0.01ml Soln (100units/ml) SC SCH ×4 (05:46→22:00)
[2021-02-07] MEDS: metroNIDAZOLE 500MG/100ML 100 ML IV SCH ×3 (05:46→21:48)
[2021-02-07] MEDS: SODIUM CHLORIDE 0.9% 1,000 ML IV SCH (06:00)
[2021-02-07 06:51] LABS: Basophils # (auto) 0.1 10 ^3/uL (0-0.2); Basophils % (auto) 0.9 % (0.0-2.0); Eosinophils # (auto) 0.2 10 ^3/uL (0-0.8); Eosinophils % (auto) 1.3 % (0.0-7.0); Hematocrit 33.4 % (36.0-46.0); Hemoglobin 10.6 g/dL (12.2-16.2); Lymphocytes # (auto) 1.6 10 ^3/uL (0.4-5.4); Lymphocytes % (auto) 13.7 % (10.0-50.0); Mean Corpuscular Hemoglobin 25.6 pg (28.0-32.0); Mean Corpuscular Hgb Conc. 31.8 g/dL (32.0-36.0); Mean Corpuscular Volume 80.5 fL (80.0-100.0); Monocytes # (auto) 0.7 10 ^3/uL (0-1.3); Monocytes % (auto) 5.9 % (0.0-12.0); Neutrophils # (auto) 9.1 10 ^3/uL (1.6-8.6); Neutrophils % (auto) 78.2 % (37.0-80.0); Nucleated Red Blood Cells % 0.1 %; Red Blood Cells 4.15 10^6/uL (4.0-5.20); Red Cell Distribution Width 15.7 % (11.8-14.3); White Blood Cell 11.6 10^3/uL (4.4-10.8)
[2021-02-07 09:15] LABS: Albumin 2.1 g/dL (3.4-5.0); Calcium 8.1 mg/dL (8.5-10.1); Magnesium 3.1 mg/dL (1.6-2.6)
[2021-02-07 09:18] LABS: BUN/Creatinine Ratio 10.3; Bilirubin, Total 0.2 mg/dL (0.2-1.0); Total Protein 6.8 g/dL (6.4-8.2)
[2021-02-07] MEDS: FAMOTIDINE (10MG/ML) 2ML VL IV SCH ×2 (10:35→21:48)
[2021-02-07] MEDS: ZINC SULFATE 220mg CAP or TAB PO SCH (10:35)
[2021-02-07] MEDS: LINEZOLID 600MG/300ML 300 ML IV SCH ×2 (10:35→21:49)
[2021-02-07] MEDS: MULTIPLE VITAMIN TAB PO SCH (10:35)
[2021-02-07] MEDS: ENOXAPARIN SOD 40 MG/0.4 ML SYRINGE SC SCH (10:36)
[2021-02-07] MEDS: ASCORBIC ACID 500 MG TAB PO SCH ×2 (10:36→21:49)
[2021-02-07] MEDS: SACUBITRIL-VALSARTAN 24mg/26mg TAB PO SCH ×2 (10:42→21:49)
[2021-02-07] MEDS ORDERED: ALPRAZolam 0.5 MG TAB PO PRN (13:15)
[2021-02-07] MEDS ORDERED: HYDROcodone-ACET 10/325MG TAB PO PRN (13:15)
[2021-02-07] MEDS: MONTELUKAST SODIUM 10 MG TAB PO SCH (21:49)
[2021-02-07] MEDS: MUPIROCIN 2% OINT 15gm or 22gm TOP SCH (21:50)
[2021-02-07] MEDS: INSULIN LANTUS (GLARGINE) 1 /0.01ml (100units/ml) SC SCH (22:38)
[2021-02-08 05:00] VITALS: BP 119/81
[2021-02-08] MEDS: CEFEPIME 1 GM in SODIUM CHL 0.9% 50 ML IV SCH ×3 (06:00→22:00)
[2021-02-08] MEDS: SODIUM CHLORIDE 0.9% 1,000 ML IV SCH (06:00)
[2021-02-08] MEDS: metroNIDAZOLE 500MG/100ML 100 ML IV SCH ×3 (06:41→22:00)
[2021-02-08] MEDS: ACCU-CHEK COMFORT CURVE STRIP VI SCH ×4 (06:41→22:00)
[2021-02-08] MEDS: InsuLIN REG 1unit/0.01ml Soln (100units/ml) SC SCH ×4 (06:49→22:00)
[2021-02-08] MEDS: ALBUTEROL SULF 2.5 MG/0.5ML(0.5%) NEB SOLN NEB PRN ×2 (09:16→21:14)
[2021-02-08 09:30] VITALS: BP 124/81
[2021-02-08] MEDS: SACUBITRIL-VALSARTAN 24mg/26mg TAB PO SCH ×2 (09:38→22:00)
[2021-02-08] MEDS: ASCORBIC ACID 500 MG TAB PO SCH ×2 (09:38→22:00)
[2021-02-08] MEDS: ZINC SULFATE 220mg CAP or TAB PO SCH (09:38)
[2021-02-08] MEDS: MULTIPLE VITAMIN TAB PO SCH (09:38)
[2021-02-08] MEDS: MUPIROCIN 2% OINT 15gm or 22gm TOP SCH ×2 (09:39→22:00)
[2021-02-08] MEDS: FAMOTIDINE (10MG/ML) 2ML VL IV SCH ×2 (09:39→22:00)
[2021-02-08] MEDS: MORPHINE SULFATE 4 MG/ML SYR/VIAL IV PRN ×3 (09:40→17:47)
[2021-02-08] MEDS: ONDANSETRON HCL 4 MG/2 ML VIAL IV PRN ×3 (09:41→17:45)
[2021-02-08] MEDS: ENOXAPARIN SOD 40 MG/0.4 ML SYRINGE SC SCH (09:45)
[2021-02-08 11:58] VITALS: BP 121/83
[2021-02-08] MEDS: LINEZOLID 600MG/300ML 300 ML IV SCH ×2 (13:47→22:00)
[2021-02-08 16:00] VITALS: BP 142/81
[2021-02-08 20:00] VITALS: BP 137/87
[2021-02-08] MEDS: MONTELUKAST SODIUM 10 MG TAB PO SCH (22:00)
[2021-02-08] MEDS: INSULIN LANTUS (GLARGINE) 1 /0.01ml (100units/ml) SC SCH (22:00)
[2021-02-08 23:11] VITALS: BP 137/87
[2021-02-09] MEDS: SODIUM CHLORIDE 0.9% 1,000 ML IV SCH (03:00)
[2021-02-09] MEDS: CEFEPIME 1 GM in SODIUM CHL 0.9% 50 ML IV SCH (05:00)
[2021-02-09] MEDS: metroNIDAZOLE 500MG/100ML 100 ML IV SCH (05:30)
[2021-02-09 05:33] VITALS: BP 122/77
[2021-02-09 05:35] LABS: Basophils # (auto) 0.1 10 ^3/uL (0-0.2); Eosinophils # (auto) 0.1 10 ^3/uL (0-0.8); Eosinophils % (auto) 1.7 % (0.0-7.0); Hemoglobin 10.2 g/dL (12.2-16.2); Nucleated Red Blood Cells % 0.1 %; White Blood Cell 7.1 10^3/uL (4.4-10.8)
[2021-02-09 05:37] LABS: Basophils % (auto) 0.9 % (0.0-2.0); Hematocrit 31.4 % (36.0-46.0); Lymphocytes # (auto) 2.1 10 ^3/uL (0.4-5.4); Lymphocytes % (auto) 28.9 % (10.0-50.0); Mean Corpuscular Hemoglobin 25.9 pg (28.0-32.0); Mean Corpuscular Hgb Conc. 32.4 g/dL (32.0-36.0); Monocytes # (auto) 0.5 10 ^3/uL (0-1.3); Monocytes % (auto) 6.9 % (0.0-12.0); Neutrophils # (auto) 4.4 10 ^3/uL (1.6-8.6); Neutrophils % (auto) 61.6 % (37.0-80.0); Red Blood Cells 3.93 10^6/uL (4.0-5.20); Red Cell Distribution Width 15.9 % (11.8-14.3)
[2021-02-09] MEDS: ACCU-CHEK COMFORT CURVE STRIP VI SCH ×4 (06:05→23:03)
[2021-02-09] MEDS: InsuLIN REG 1unit/0.01ml Soln (100units/ml) SC SCH ×4 (06:05→23:06)
[2021-02-09 08:00] VITALS: BP 144/72
[2021-02-09 09:02] LABS: BUN/Creatinine Ratio 11.1; Calcium 8.5 mg/dL (8.5-10.1)
[2021-02-09 09:05] LABS: Potassium 4.1 mmol/L (3.5-5.1)
[2021-02-09] MEDS: ENOXAPARIN SOD 40 MG/0.4 ML SYRINGE SC SCH (10:00)
[2021-02-09] MEDS: MORPHINE SULFATE 4 MG/ML SYR/VIAL IV PRN ×2 (10:06→14:24)
[2021-02-09] MEDS: SACUBITRIL-VALSARTAN 24mg/26mg TAB PO SCH ×2 (10:07→23:01)
[2021-02-09] MEDS: ASCORBIC ACID 500 MG TAB PO SCH ×2 (10:07→23:01)
[2021-02-09] MEDS: ONDANSETRON HCL 4 MG/2 ML VIAL IV PRN ×4 (10:07→23:02)
[2021-02-09] MEDS: ZINC SULFATE 220mg CAP or TAB PO SCH (10:07)
[2021-02-09] MEDS: FAMOTIDINE (10MG/ML) 2ML VL IV SCH ×2 (10:07→23:01)
[2021-02-09] MEDS: MULTIPLE VITAMIN TAB PO SCH (10:07)
[2021-02-09] MEDS: MUPIROCIN 2% OINT 15gm or 22gm TOP SCH ×2 (10:08→23:01)
[2021-02-09] MEDS: LINEZOLID 600MG/300ML 300 ML IV SCH ×2 (10:09→23:00)
[2021-02-09] MEDS: ALBUTEROL SULF 2.5 MG/0.5ML(0.5%) NEB SOLN NEB PRN ×2 (10:28→22:28)
[2021-02-09 12:00] VITALS: BP 134/94
[2021-02-09] MEDS: LORazepam 0.5 MG TAB PO PRN (12:50)
[2021-02-09 16:00] VITALS: BP 152/92
[2021-02-09] MEDS: HYDROmorphone HCL 2 MG/ML VL IV PRN ×2 (18:27→23:03)
[2021-02-09 22:00] VITALS: BP 137/87
[2021-02-09] MEDS: MONTELUKAST SODIUM 10 MG TAB PO SCH (23:01)
[2021-02-09] MEDS: INSULIN LANTUS (GLARGINE) 1 /0.01ml (100units/ml) SC SCH (23:06)
[2021-02-10 01:12] VITALS: BP 123/72
[2021-02-10 05:00] VITALS: BP 119/83
[2021-02-10] MEDS: ONDANSETRON HCL 4 MG/2 ML VIAL IV PRN ×3 (06:03→15:35)
[2021-02-10] MEDS: HYDROmorphone HCL 2 MG/ML VL IV PRN ×3 (06:05→15:34)
[2021-02-10 06:35] LABS: BUN/Creatinine Ratio 8.6; Calcium 8.6 mg/dL (8.5-10.1); Magnesium 2.1 mg/dL (1.6-2.6); Potassium 4.4 mmol/L (3.5-5.1)
[2021-02-10 06:36] LABS: Basophils # (auto) 0 10 ^3/uL (0-0.2); Basophils % (auto) 0.3 % (0.0-2.0); Eosinophils % (auto) 1.9 % (0.0-7.0); Hemoglobin 11.1 g/dL (12.2-16.2); Mean Corpuscular Hemoglobin 26.2 pg (28.0-32.0); Monocytes # (auto) 0.5 10 ^3/uL (0-1.3); Neutrophils # (auto) 5.1 10 ^3/uL (1.6-8.6); Red Cell Distribution Width 15.9 % (11.8-14.3); White Blood Cell 7.9 10^3/uL (4.4-10.8)
[2021-02-10 06:39] LABS: Eosinophils # (auto) 0.1 10 ^3/uL (0-0.8); Hematocrit 34.4 % (36.0-46.0); Lymphocytes # (auto) 2.1 10 ^3/uL (0.4-5.4); Lymphocytes % (auto) 27.1 % (10.0-50.0); Mean Corpuscular Hgb Conc. 32.4 g/dL (32.0-36.0); Mean Corpuscular Volume 80.7 fL (80.0-100.0); Monocytes % (auto) 6.6 % (0.0-12.0); Neutrophils % (auto) 64.1 % (37.0-80.0); Red Blood Cells 4.26 10^6/uL (4.0-5.20)
[2021-02-10] MEDS: InsuLIN REG 1unit/0.01ml Soln (100units/ml) SC SCH ×2 (06:54→11:01)
[2021-02-10] MEDS: ACCU-CHEK COMFORT CURVE STRIP VI SCH ×2 (06:55→11:00)
[2021-02-10 09:00] VITALS: BP 122/76
[2021-02-10] MEDS: FAMOTIDINE (10MG/ML) 2ML VL IV SCH (09:01)
[2021-02-10] MEDS: ZINC SULFATE 220mg CAP or TAB PO SCH (09:02)
[2021-02-10] MEDS: MULTIPLE VITAMIN TAB PO SCH (09:02)
[2021-02-10] MEDS: ASCORBIC ACID 500 MG TAB PO SCH (09:02)
[2021-02-10] MEDS: LINEZOLID 600MG/300ML 300 ML IV SCH (09:02)
[2021-02-10] MEDS: ENOXAPARIN SOD 40 MG/0.4 ML SYRINGE SC SCH (09:02)
[2021-02-10] MEDS: MUPIROCIN 2% OINT 15gm or 22gm TOP SCH (10:06)
[2021-02-10] MEDS: SACUBITRIL-VALSARTAN 24mg/26mg TAB PO SCH (10:06)
[2021-02-10] MEDS ORDERED: LINE1TAB6 PO (11:18)
[2021-02-10 13:00] VITALS: BP 143/94
[2021-02-10 15:59] VITALS: BP 138/78
== END 2021-02-10 16:16 | disposition home health service (06) | DRG 617 ==
LOC: ER 17:09 → OVERFLOW 02-06 05:25 → WEST WING 02-06 18:00
PROVIDERS: ADMIT Nurse Practitioner Family; ATTEND Internal Medicine
PROC: 0Y6P0Z0 Detachment at Right 1st Toe, Complete, Open Approach (ICD-10-PCS; principal; 2021-02-06 15:28)
PROC: 05HC33Z Insertion of Infusion Device into Left Basilic Vein, Percutaneous Approach (ICD-10-PCS; 2021-02-09)
PROC: B54NZZA Ultrasonography of Left Upper Extremity Veins, Guidance (ICD-10-PCS; 2021-02-09)
DX: E11.621 Type 2 diabetes mellitus with foot ulcer (principal); I13.0 Hypertensive heart and chronic kidney disease with heart failure and stage 1 through stage 4 chronic kidney disease, or unspecified chronic kidney disease; L03.115 Cellulitis of right lower limb; R65.10 Systemic inflammatory response syndrome (SIRS) of non-infectious origin without acute organ dysfunction; L97.412 Non-pressure chronic ulcer of right heel and midfoot with fat layer exposed; L02.611 Cutaneous abscess of right foot; I50.22 Chronic systolic (congestive) heart failure; I96 Gangrene, not elsewhere classified; E88.09 Other disorders of plasma-protein metabolism, not elsewhere classified; D72.829 Elevated white blood cell count, unspecified; E11.65 Type 2 diabetes mellitus with hyperglycemia; N18.9 Chronic kidney disease, unspecified; E03.9 Hypothyroidism, unspecified; G47.33 Obstructive sleep apnea (adult) (pediatric); E11.21 Type 2 diabetes mellitus with diabetic nephropathy; B95.62 Methicillin resistant Staphylococcus aureus infection as the cause of diseases classified elsewhere; Z20.822 Contact with and (suspected) exposure to COVID-19; E11.22 Type 2 diabetes mellitus with diabetic chronic kidney disease; F32.A Depression, unspecified; E78.5 Hyperlipidemia, unspecified; F41.9 Anxiety disorder, unspecified; J45.909 Unspecified asthma, uncomplicated; Z83.3 Family history of diabetes mellitus; Z88.8 Allergy status to other drugs, medicaments and biological substances; Z91.013 Allergy to seafood; Z89.412 Acquired absence of left great toe
CPT/HCPCS: 36415; 73630; 73700; 80048; 80053; 81001; 82962; 83605; 83735; 84702; 85007; 85025; 85027; 85610; 85730; 86850; 86900; 86901; 87040; 87070; 87075; 87077; 87081; 87186; 87205; 87426; 93926; 94640; 96365; 96375; G0378; J0690; J1815; J2250; J2405; J2704; J3490